=== PATIENT | male | born 1940 | race Caucasian/White ===

== ENCOUNTER → 2023-07-12 10:04 | Outpatient (REF) | payer OTHER, SELFPAY | LOC: WOUND 10:04 | PROVIDERS: ATTENDING PHYSICIAN Surgery; REFERRING PHYSICIAN Family Medicine | DX: L89.154 Pressure ulcer of sacral region, stage 4 (principal); E11.29 Type 2 diabetes mellitus with other diabetic kidney complication; N18.31 Chronic kidney disease, stage 3a; C67.9 Malignant neoplasm of bladder, unspecified; I25.10 Atherosclerotic heart disease of native coronary artery without angina pectoris; N40.1 Benign prostatic hyperplasia with lower urinary tract symptoms | CPT/HCPCS: 99212 ==

== ENCOUNTER 2023-07-16 23:37 | Inpatient (IN) | payer OTHER, SELFPAY ==
[2023-07-16] VITALS (14 sets, daily range): BP systolic 73–112; BP diastolic 45–57; PULSE 2–50; BMI 30.3
[2023-07-16 20:13] LABS: % Basophils 0.3 % (0-2); % Eosinophils 0.7 % (0-6); % Immature Granulocytes 0.6 % (0-0.5); % Lymphocytes 20.1 % (20.5-51.1); % Monocytes 6.4 % (1.7-9.3); % Neutrophils 71.9 % (42.2-75.2); Absolute Eosinophils 0.1 10^3/uL (0-0.7); Absolute Lymphocytes 1.4 10^3/uL (1.2-3.4); Absolute Monocytes 0.5 10^3/uL (0.1-0.6); Hematocrit 34.2 % (39.0-52.0); Hemoglobin 9.9 g/dL (13.0-18.0); Mean Corp Hgb Conc. 28.9 g/dL (33.0-37.0); Mean Corpuscular Volume 93.2 fL (80.0-94.0); Mean Platelet Volume 12.3 fL (7.4-10.4); Nucleated Red Blood Cells % 0 % (-); Platelet Count 119 10^3/uL (130-400); Red Blood Cell Count 3.67 10^6/uL (4.70-6.10); Red Cell Dist. Width 20.2 % (11.5-14.5)
--- NOTE | 2023-07-16 20:18 | ED.GENMED ---
History of Present Illness
General
Chief Complaint: Urinary Symptoms
Source: patient and ambulance crew
Exam Limitations: none
Time Seen by Provider: 07/16/23 20:01
Nursing documentation reviewed up to this point in time: agreed with
Travel History
Have you had any contact with someone who has COVID-19?: No
Do you have any symptoms of coronavirus? Fever > 100 degrees, chills, cough, shortness of breath, sore throat, loss of taste or smell, muscle aches, or headache?: No
Symptoms:: bradycardic, hypothermic
History of Present Illness
History of Present Illness:
83-year-old male with a past medical history of hypertension, hyperlipidemia, CAD, CHF, diabetes, chronic respiratory failure on 4 L of home oxygen who presents to the emergency department from the [facility] where he lives independently
with his but has daily visiting nurse; he presents via EMS for evaluation of generalized weakness and decreased urine output. Patient says this has been an ongoing issue for the past few days. He says he feels profoundly fatigued. He says
that he noticed that he is barely putting anything out from his Hodge catheter. He says that he cannot recall the last time he emptied--there are only about 100 mLs of urine in the bag. He says that he has not noticed any pain including chest
pain, abdominal pain, back pain or flank pain. He says that he has chronic dyspnea no worse than usual. No significant cough. He has a chronic wound which she says that the nurse regularly checks; he says that he was told it was improving. He
denies any other complaints today.
Past History
Past History
ED Past Medical History: CAD, CHF, HTN, Hypercholesterolemia, NIDDM, [place] (1995), Other (Reactive airway disease, wheezing with URI. Arthritis, gout, iron deficiency anemia) and Other (Coronary artery disease status post stent, diabetes)
ED Past Surgical History: Cardiac (PTCA, stent x1 1995) and Orthopedic (Rotator cuff repair)
Social History
Tobacco: Non-smoker
Alcohol: None
Drug: None
Personal:
Living: assisted living
Employment: Retired
Family History
Family History: CAD
Review of Systems
Review of Systems
All Other Systems: ROS reviewed and negative except as documented in HPI and ROS
Constitutional: Reports fatigue; Denies fever or chills
EENT: Denies sore throat
Respiratory: Reports trouble breathing (Chronic, unchanged); Denies cough
Cardiac: Denies chest pain or palpitations
ABD/GI: Denies abdominal pain, nausea, vomiting or diarrhea
: Reports other (Decreased urine output); Denies flank pain
Musculoskeletal: Denies neck pain or back pain
Skin: Reports other (Sacral wound)
Neurological: Denies dizzy
Phy Exam
Physical Exam
Physical Exam:
General: Awake, alert, oriented x3; appears chronically ill
Head: Normocephalic, atraumatic
Eyes: Conjunctiva normal, pupils 4 mm equal round and reactive to light bilaterally
Throat: Airway intact, handling secretions
Neck: Trachea midline, supple without meningismus, no JVD
Lungs: Somewhat diminished lung bases bilaterally but no focal wheezing or rales appreciated, no tachypnea, acceptable pulse ox on his normal 4 L of oxygen
Heart: Bradycardia with regular rhythm, no murmurs, gallops, or rubs appreciated
Abd: Soft, non distended, nontender
: Hodge catheter in place, scant amount of essentially straw-colored urine without significant sediment in the bag
Neuro: Cranial nerves grossly intact, speech fluid, generally weak but no focal weakness
Skin: Patient has unstageable sacral wound approximately 8 cm diameter with some rim of erythema and foul smell and purulence
Extremities: Edema bilateral lower extremities; extremities are cool to the touch
Scores
Heart Failure Risk
Heart Failure Risk Score: Not Applicable
Heart Score for Chest Pain Patients
STEMI patient?: Not applicable
Withdrawal Assessment of Alcohol
Withdrawal Assessment Completed?: Not applicable
Course
Orders/Labs/Results
Orders:
Orders
07/16/23 19:47
Electrocardiogram (*1) Urgent
Reason for Study: Bradycardia / Tachycardia
07/16/23 19:48
EKG- Treatment ONCE
07/16/23 20:03
Bladder Scan- Treatment ONCE
07/16/23 20:05
Complete Blood Count/With Diff Urgent
Comprehensive Metabolic Panel Urgent
Free T4 Urgent
Lactic Acid Urgent
TSH Reflex To Free T4 Urgent
Troponin I Urgent
Blood Culture Q30M
ROSA Source: Blood/Venous
Specimen Description:
07/16/23 20:17
Warming [Thermal Regulation-Treatment] ONCE
Mode:: Automatic
Type of thermoregulation:: Heating
PATIENT'S Goal Temperature:: 96.8 F (36 C)
Comments/Additional Instructions:: Temperature and skin assessment per unit protocol
0.9% Sodium Chloride 250 ml [Nss] 250 ml IV BOLUS
Piperacillin/Tazo 3.375 Gram [Zosyn] 3.375 gram in 50 ml IV NOW
07/16/23 20:18
CR Chest Portable - 1 View Urgent
Comment:
Reason For Exam: weak--eval for pna
Reason Study Needs to be Portable: Unable to Transport
07/16/23 20:28
Blood Culture Q30M
ROSA Source: Blood/Venous
Specimen Description:
07/16/23 21:25
Vancomycin [Vancocin] 2,000 mg 0.9% Sodium Chloride 500 ml [Nss] 500 ml IV NOW
07/16/23 21:39
Hydrocortisone Sod Succinate [Solu-Cortef] 100 mg IV NOW STA
07/16/23 21:47
0.9% Sodium Chloride 250 ml [Nss] 250 ml IV BOLUS
07/16/23 21:58
Venous Blood Gas Urgent
%Oxygen/Room Air: 94
07/16/23 22:43
Bipap [RESP] Urgent
Patient to use own unit?: No
Inspiratory Pressure (cm H2O): 12
Expiratory Pressure (cm H2O): 5
07/16/23 22:50
NORepinephrine INF (STD CONC) NOW X 1 BAG NORepinephrine 4 MG/250 ML [Levophed] 4 mg in 250 ml IV NOW
Initial dose in mcg/min, then titrate:: 2
Titrate to keep:: MAP > 65 mmHg
Titrate by mcg/min:: 1-2 mcg/min
Frequency of titrations (minutes):: 5
Maximum dose in ICU in mcg/min:: 30
Maximum dose in IMU in mcg/min:: 8
Maximum dose in IVU in mcg/min:: 4
Begin to taper infusion when:: Remained at goal for 4hrs
Taper by mcg/min:: 1-2 mcg/min
Frequency of taper (minutes) if patient maintains goal:: 30
Taper to off?: Yes
If infusion off & no longer maintaining goal:: Contact Provider
NSS 500mL Bolus over 1 hr 0.9% Sodium Chloride 500 ml [Nss] 500 ml IV BOLUS
Abnormal Lab Results
07/16/23 07/16/23
20:05 21:58
RBC 3.67 L 10^6/uL
(4.70-6.10)
Hgb 9.9 L g/dL
(13.0-18.0)
Hct 34.2 L %
(39.0-52.0)
MCHC 28.9 L g/dL
(33.0-37.0)
RDW 20.2 H %
(11.5-14.5)
Plt Count 119 L 10^3/uL
(130-400)
MPV 12.3 H fL
(7.4-10.4)
Immature Gran % 0.6 H %
(0-0.5)
Lymphocytes % 20.1 L %
(20.5-51.1)
VBG pH 7.21 L
(7.32-7.43)
VBG pCO2 76 H* mmHg
(35-48)
VBG pO2 139 H mmHg
(30-50)
VBG HCO3 30.4 H mmol/L
(22-27)
BUN 99 H mg/dl
(9-20)
Creatinine 1.8 H mg/dL
(0.7-1.3)
Glucose 143 H mg/dl
(70-99)
AST 16 L U/L
(17-59)
Alkaline Phosphatase 151 H U/L
(38-126)
Total Protein 6.2 L g/dl
(6.3-8.2)
Albumin 3.3 L g/dl
(3.5-5.0)
TSH (Reflex) 15.90 H uIU/ml
(0.47-4.68)
07/16/23 20:05
07/16/23 20:05
Vital Signs
Initial and Last Documented VS:
Initial Vital Signs
Temp Pulse Resp BP Pulse Ox
33.1 C L 43 20 106/56 92
07/16/23 19:43 07/16/23 19:43 07/16/23 19:43 07/16/23 19:43 07/16/23 19:43
Last Documented Vital Signs
Temp Pulse Resp BP Pulse Ox
33.3 C L 42 26 81/56 96
07/16/23 21:16 07/16/23 22:45 07/16/23 22:45 07/16/23 22:30 07/16/23 22:45
MDM/Problems Addressed
Differential Diagnosis Includes:
Infection including UTI, pneumonia, viral syndrome; myxedema coma/hypothyroidism; renal failure/uremia; anemia
MDM/Problems Addressed:
83-year-old male presents to the emergency room for worsening fatigue and decreased urine output. He arrives to us bradycardic, significantly hypothermic; soft blood pressure 93/50. Physical exam as above. Plan to place an IV check labs including
a CBC and a CMP, thyroid studies. Check EKG and troponin. Check lactate and blood cultures. Will send a urinalysis, chest x-ray. Bladder scan shows no retained urine. Will perform rewarming measures, provide some gentle fluids. Anticipate
admission pending initial assessment. Chief concern would be for infection particularly sacral wound infection and with his hypothermia, soft blood pressure will cover with broad-spectrum antibiotics upfront.
Initial labs reviewed: CBC shows stable anemia to 9.9, marginal thrombocytopenia to 119. CMP shows a creatinine of 1.8 only slightly increased at baseline. Troponin negative. TSH was significantly with a 15.9 but free T4 was normal. Hold off on
Synthroid with normal T4; I did add IV steroid for any element of adrenal insufficiency that may be present. Clinical reassessment patient remains hypothermic and bradycardic although we are continue to rewarm. He does have somewhat softer blood
pressure 82/47 which could be related to rewarming efforts. He has been covered with broad-spectrum antibiotics. We are continuing fluid resuscitation. He is somewhat lethargic but easily arousable�has prior history of hypercapnia added a VBG.
Chest x-ray concerning for bilateral lower lobe pneumonia. VBG returned with respiratory acidosis pH 7.21 with a pCO2 of 76. Patient is still slightly drowsy but arousable. Will place on BiPAP. His blood pressure remains soft despite IV
fluids�will start on low-dose Levophed peripherally while we continue fluid resuscitation. At this point will admit to the hospitalist�suspect sepsis secondary to pneumonia versus sacral wound infection. Case discussed with hospitalist for
admission to the ICU.
Chronic conditions affecting care:
CHF complicates fluid resuscitation
*Radiology
Radiology exam reviewed: preliminary read by ED provider and radiology read reviewed
*Pulse Oximetry
Patient hypoxic: no (Saturating acceptably on normal 4 L)
*EKG
Interpreted by ED Provider?: Yes
Heart Rate: 44
Rate: bradycardiac (Junctional bradycardia)
Rhythm: junctional
[place]: normal axis
Interval: normal interval
QRS Pattern: normal QRS
Ischemia: no ischemia
*Critical Care Note
Total Time (30-74mins, 75-104mins- exclusive of procedures): 33
comment:
Critical care statement: A total of 33 minutes of critical care time was provided for this patient. This includes management of unstable vital signs, evaluation of the patient at bedside, frequent reassessment, discussion with
consultants/hospitalist, and review of pertinent medical records. This time was separate from time utilized to perform any aforementioned documented procedures
Data Reviewed
Review of Other/Old Records Reveals: Labs and Records
Source: patient, records and ambulance crew
Patient Management
Discussion with other providers: Hospitalist (Discussed with hospitalist)
Escalation/DeEscalation of care consider admission/obs:
Admission indicated
ED Attending Note
-
Portions of this chart may have been created with voice recognition software.� Occasional wrong word or��sound alike� substitutions may have occurred due to the inherent limitations of voice recognition software.
Discharge Plan
Departure
Patient Disposition: Admit
Date of Disposition: 07/16/23
Time of Disposition: 22:53
Admit to doctor: Dulce
Presentation/result/management discussed w/ accepting MD/DO: Hospitalist
Discharge Problem:
Pneumonia, Hypercapnia, Hypothermia, Septic shock
Prescriptions:
No Action
simvastatin 20 MG tablet
20 mg PO HS
azelastine 137 mcg (0.1 %) aerosol,spray
1 spray INTRANASAL DAILY
cholecalciferol (vitamin D3) [Vitamin D3] 25 mcg (1,000 unit) Tablet
25 mcg PO DAILY
fluticasone propionate 50 mcg/actuation Quimby,Suspension
1 spray INTRANASAL DAILY
acetaminophen 325 MG tablet
650 mg PO Q4HPRN PRN (Reason: mild pain/fever>100.4)
bisacodyl [Dulcolax (bisacodyl)] 10 mg Suppository
10 mg NC DAILYPRN PRN (Reason: if MOM ineffective)
insulin aspart U-100 [Novolog FlexPen U-100 Insulin] 100 unit/mL (3 mL) Insulin Pen
0 unit SC AC
Patient Comments:
0-150=0 units, 151-200=1 unit, 201-250=2 units, 251-300=3 units, 301-400=4 units, 401-500=5 units, over 500=5 units and call MD.
magnesium hydroxide [Milk of Magnesia] 400 mg/5 mL Suspension
2,400 mg PO [id number] PRN (Reason: if no BM for 9 shifts)
ProSource 10-100 gram-kcal/30 mL Liquid
1 ea PO BID
Rx Instructions:
05/20/2023, 2 tablespoons (30 ml) BID.
aspirin 81 mg tablet,delayed release (DR/EC)
81 mg PO DAILY
furosemide [Lasix] 40 mg Tablet
40 mg PO DAILYPRN PRN (Reason: edema )
promethazine-DM 6.25-15 mg/5 mL Syrup
5 ml PO Q6HPRN PRN (Reason: cough )
miconazole nitrate [Micro-Guard] 2 % Powder
1 applic TOPICAL BID
Dakin's Solution 0.125 % Solution
1 applic TOPICAL DAILYPRN PRN (Reason: left ischium/soilage)
Dakin's Solution 0.125 % Solution
1 applic TOPICAL BID
tamsulosin 0.4 mg capsule
0.4 mg PO QPM
hydralazine 25 mg Tablet
25 mg PO TID Qty: 90 0RF
Aquaphor Ointment
1 applic TOPICAL HS
ibuprofen 400 mg Tablet
400 mg PO BIDPRN PRN (Reason: mild pain)
Yllgp-Pv-Khe Enema 19-7 gram/118 mL Enema
118 ml NC DAILYPRN PRN (Reason: if no bm aftr dulcolax on 4th day)
sodium chloride 0.65 % Aerosol,Quimby
1 spray INTRANASAL DAILYPRN PRN (Reason: congestion) Qty: 0
cyanocobalamin (vitamin B-12) 500 mcg Tablet
2,000 mcg PO DAILY
polyethylene glycol 3350 17 gram powder in packet
17 g PO DAILY PRN (Reason: Constipation)
latanoprost 0.005 % Drops
1 drp RIGHT EYE HS
sennosides [senna] 8.6 mg Tablet
8.6 mg PO BIDPRN PRN (Reason: constipation)
guaifenesin 100 mg/5 mL Liquid
200 mg PO Q4HPRN PRN (Reason: cough)
nitrofurantoin macrocrystal 100 mg Capsule
100 mg PO DAILY
Patient Comments:
start 06/08/23
phenylephrine HCl [Nasal Decongestant (PE)] 10 mg Tablet
10 mg PO Q6HPRN PRN (Reason: congestion)
Fitz-Synephrine (phenylephrine) 1 % Quimby,Non-Aerosol
1 spray INTRANASAL Q6HPRN PRN (Reason: congestion)
Dakin's Solution 0.125 % Solution
1 applic TOPICAL DAILYPRN PRN (Reason: soilage)
Aquaphor Ointment
1 applic TOPICAL DAILY
Referrals:
Parker Joe MD [Family Provider] -
Interventions
Interventions:
*Risk Screen - Suicide Last Done: 07/16/23 19:54
*General Assessment Last Done: 07/16/23 19:54
ED- Fall Risk Assessment Last Done: 07/16/23 20:06
*ED COVID-19 Vaccine History Last Done: 07/16/23 19:54
ED-Male Genitourinary Assessment Last Done: 07/16/23 20:06
[2023-07-16 20:27] LABS: Lactic Acid 1.2 mmol/L (0.7-2.0)
[2023-07-16 20:28] LABS: ALT (SGPT) 14 U/L (0-50); AST (SGOT) 16 U/L (17-59); Albumin 3.3 g/dl (3.5-5.0); Alkaline Phosphatase 151 U/L (38-126); Blood Urea Nitrogen 99 mg/dl (9-20); Calcium 8.4 mg/dl (8.4-10.2); Carbon Dioxide 28 mmol/L (22-30); Chloride 105 mmol/L (98-107); Estimated Creatinine Clearance 39 ml/min; Glucose 143 mg/dl (70-99); Hypochromasia 1+; Normal RBC Morphology No; Potassium 4.9 mmol/L (3.5-5.1); Sodium 137 mmol/L (135-145); Total Bilirubin 0.4 mg/dl (0.2-1.3); Total Protein 6.2 g/dl (6.3-8.2); eGFR 37.35
[2023-07-16] MEDS: NSS 250 IV ×2 (20:29→22:03)
[2023-07-16] MEDS: ZOSYN 50 IV (20:30)
[2023-07-16 20:39] LABS: Troponin I < 0.012 ng/ml
[2023-07-16 21:35] LABS: Free T4 1.07 ng/dl (0.78-2.19)
[2023-07-16] MEDS: VANCOCIN 540 MG IV (22:00)
[2023-07-16 22:04] LABS: Venous Blood Gas B.E. 1.5 mmol/L (-4 to +4); Venous Blood Gas HCO3 30.4 mmol/L (22-27); Venous Blood Gas O2 Sat % 98.9 %; Venous Blood Gas pH 7.21 (7.32-7.43); Venous Blood Gas pO2 139 mmHg (30-50)
[2023-07-16 22:06] LABS: Venous Blood Gas pCO2 76 mmHg (35-48)
[2023-07-16] MEDS: SOLU-CORTEF 100 MG IV (22:09)
[2023-07-16] MEDS: NSS 500 IV (23:18)
[2023-07-16] MEDS: LEVOPHED 250 IV (23:21)
--- NOTE | 2023-07-16 23:37 | HPS.HSE ---
Family Physician
-
Family Physician: Parker Joe
Chief Complaint
-
shortness of breath
History of Present Illness
83-year-old male past medical history of CAD status post stent, chronic HFpEF, hypertension, hyperlipidemia, diabetes, chronic Hodge catheter with history of catheter associated UTI, CKD3, stage IV sacral wound, anemia of chronic disease, cervical
dystonia/amatory dysfunction, morbid obesity, stercoral colitis, presenting from [facility] for generalized weakness and decreased urine output for past few days. He did not recall the last time he emptied urine from Hodge catheter bag. He
denies any chest pain, abdominal pain, back pain or flank pain. He denies any shortness of breath is worse than usual. No cough. He has chronic wound which nurse checks regularly and was told it was improving.
As per daughter patient was in his normal state of health until today. Daughter states that patient was only bradycardic when he was admitted here previously for sepsis. No new cardiac medications recently.
Patient was admitted 1 month ago for septic shock secondary to stercoral colitis versus right lower lobe pneumonia treated with IV antibiotic as well as hypercapnic respiratory failure treated with BiPAP.
Patient does not smoke or drink alcohol.
Medical History
Past Medical History
Past Medical History: Reports Other ( CAD status post stent, chronic HFpEF, hypertension, hyperlipidemia, diabetes, chronic Hodge catheter with history of catheter associated UTI, CKD3, stage IV sacral wound, anemia of chronic disease, cervical
dystonia/amatory dysfunction, morbid obesity, stercoral colitis)
Past Surgical History: Reports None
Social History
Tobacco: Non-smoker
Alcohol: None
Drug: None
Family History
Family History: Not pertinent
Allergies / Home Medications
Allergies reflects when Allergies were last updated in [employer].
Home Medications with original date entered in [employer]
Allergy/Medication List:
Allergies
Allergy/AdvReac Type Severity Reaction Status Date / Time
erythromycin base Allergy 'a long Verified 06/14/23 15:00
time ago-
can't
remember'
Opioids - Morphine Analogues Allergy Unknown Verified 06/14/23 15:00
tetracycline Allergy Unknown Verified 06/14/23 15:00
clonazepam AdvReac constipatio Verified 06/14/23 15:00
n
meperidine AdvReac agitated Verified 06/14/23 15:00
shellfish derived AdvReac Swelling/hx Verified 06/14/23 15:00
gout
Home Medications
simvastatin 20 mg tablet 20 mg PO HS High cholesterol 06/30/12
acetaminophen 325 mg tablet 650 mg PO Q4HPRN PRN mild pain/fever>100.4 07/02/22
azelastine 137 mcg (0.1 %) nasal spray aerosol 1 spray intranasal DAILY Allergies 07/02/22
cholecalciferol (vitamin D3) 25 mcg (1,000 unit) tablet (Vitamin D3) 25 mcg PO DAILY Supplement 07/02/22
fluticasone propionate 50 mcg/actuation nasal spray,suspension 1 spray intranasal DAILY Congestion 07/02/22
bisacodyl 10 mg rectal suppository (Dulcolax (bisacodyl)) 10 mg NM DAILYPRN PRN if MOM ineffective 11/08/22
insulin aspart U-100 100 unit/mL (3 mL) subcutaneous pen (Novolog FlexPen U-100 Insulin aspart) 0 unit SC AC Diabetes 11/08/22
amino ac-protein hydro-whey protein 10 gram-100 kcal/30 mL oral liquid (ProSource) 1 ea PO BID nutrition 12/22/22
aspirin 81 mg tablet,delayed release 81 mg PO DAILY Blood Clot Prevention/Tx 12/22/22
magnesium hydroxide 400 mg/5 mL oral suspension (Milk of Magnesia) 2,400 mg PO [id number] PRN if no BM for 9 shifts 12/22/22
furosemide 40 mg tablet (Lasix) 40 mg PO DAILYPRN PRN edema 04/02/23
miconazole nitrate 2 % topical powder (Micro-Guard) 1 applic topical BID B/L groin rash 04/02/23
promethazine-DM 6.25 mg-15 mg/5 mL oral syrup 5 ml PO Q6HPRN PRN cough 04/02/23
sodium hypochlorite 0.125 % solution (Dakin's Solution) 1 applic topical BID apply to sacral wound 04/02/23
sodium hypochlorite 0.125 % solution (Dakin's Solution) 1 applic topical DAILYPRN PRN left ischium/soilage 04/02/23
tamsulosin 0.4 mg capsule 0.4 mg PO QPM Urinary Issue 04/02/23
hydralazine 25 mg tablet 25 mg PO TID #90 tabs 04/07/23
cyanocobalamin (vitamin B-12) 500 mcg tablet 2,000 mcg PO DAILY Supplement 05/20/23
ibuprofen 400 mg tablet 400 mg PO BIDPRN PRN mild pain 05/20/23
mineral oil-hydrophil petrolat topical ointment (Aquaphor topical ointment) 1 applic topical HS B/L lower legs and feet 05/20/23
polyethylene glycol 3350 17 gram oral powder packet 17 g PO DAILY PRN Constipation 05/20/23
sodium chloride 0.65 % nasal spray aerosol 1 spray intranasal DAILYPRN PRN congestion ##0 05/20/23
sodium phosphates 19 gram-7 gram/118 mL enema (Pigbx-Go-Bhx Enema) 118 ml NM DAILYPRN PRN if no bm aftr dulcolax on 4th day 05/20/23
guaifenesin 100 mg/5 mL oral liquid 200 mg PO Q4HPRN PRN cough 06/02/23
latanoprost 0.005 % eye drops 1 drp RIGHT EYE HS Eye Condition 06/02/23
nitrofurantoin macrocrystal 100 mg capsule 100 mg PO DAILY Infection 06/02/23
phenylephrine HCl 10 mg tablet (Nasal Decongestant (phenylephrine)) 10 mg PO Q6HPRN PRN congestion 06/02/23
sennosides 8.6 mg tablet (senna) 8.6 mg PO BIDPRN PRN constipation 06/02/23
phenylephrine HCl 1 % nasal spray (Fitz-Synephrine (phenylephrine)) 1 spray intranasal Q6HPRN PRN congestion 06/14/23
sodium hypochlorite 0.125 % solution (Dakin's Solution) 1 applic topical DAILYPRN PRN soilage 06/14/23
mineral oil-hydrophil petrolat topical ointment (Aquaphor topical ointment) 1 applic topical DAILY sacral woud 07/16/23
Review of Systems
-
History Source: Patient
A 12 point ROS was completed and negative except as noted: Yes
Constitutional: Reports No Symptoms
EENT: Reports No Symptoms
Respiratory: Reports No Symptoms
Cardiac: Reports No Symptoms
Abdomen/GI: Reports No Symptoms
: Reports No Symptoms
Musculoskeletal: Reports No Symptoms
Skin: Reports No Symptoms
Neurological: Reports No Symptoms
Endocrine: Reports No Symptoms
Hematologic/Lymphatic: Reports No Symptoms
Psych: Reports No Symptoms
Physical Exam
Vital Signs
Vital Signs
Temp Pulse Resp BP Pulse Ox
91.9 F L 42 26 81/56 96
07/16/23 21:16 07/16/23 22:45 07/16/23 22:45 07/16/23 22:30 07/16/23 22:45
Physical Exam
General: Well Developed, Well Nourished and No Apparent Distress
HEENT: NormoCephalic, Moist mucous membranes and Atraumatic
Respiratory: Clear
Cardiac: S1/S2 and Regular Rhythm; No Murmur or Rub
GI: Soft, Non Tender, Non Distended and Normal Bowel Sounds; No Organomegaly
Rectal: Deferred by Provider
Musculoskeletal: No Clubbing, No Cyanosis and No Edema
Skin: No Rash
Neuro: Nonfocal/grossly intact
Laboratory Results
-
07/16/23 20:05
07/16/23 20:05
Laboratory Results
Lactic Acid 1.2 mmol/L (0.7-2.0) 07/16/23 20:05
Total Bilirubin 0.4 mg/dl (0.2-1.3) 07/16/23 20:05
AST 16 U/L (17-59) L 07/16/23 20:05
ALT 14 U/L (0-50) 07/16/23 20:05
Alkaline Phosphatase 151 U/L (38-126) H 07/16/23 20:05
Troponin I < 0.012 ng/ml 07/16/23 20:05
Data Reviewed
-
Lab Data: Labs Reviewed by me
Old Records: Reviewed
Impression/Plan
-
IMPRESSION:
PLAN:
# Septic shock (hypothermia, tachypnea, hypotension) secondary to bibasilar pneumonia with small to moderate right pleural effusion/infected sacral wound
-Patient awake and alert on BiPAP
-Examination of sacral wound shows unstageable sacral wound 8 cm with some rim of erythema and foul smell and purulence
-Check blood cultures, sputum culture, wound culture
-Check urinalysis
-Check COVID and influenza
-Replace Hodge catheter
-Patient received 1 L of IV fluids, hold further fluids given hypercapnic respiratory failure/pleural effusion
-Vancomycin/Zosyn
-Levophed
-Bear hugger
# Severe hypothermia
# Junctional bradycardia secondary to hypothermia
-EKG shows junctional bradycardia heart rate of 44
-TSH 15.9, free T4 1.07
-Check a.m. cortisol
-Started stress dose steroids 50 mg IV every 8 hydrocortisone
# Hypercapnic respiratory failure
# Small to moderate right pleural effusion/small left pleural effusion
-VBG shows pCO2 of 76
-BiPAP started
Coronary artery disease status post stent
-Continue aspirin
-Continue statin
Chronic HFpEF on 3L
-Hold Lasix
Essential hypertension
-Hold hydralazine
Hyperlipidemia
Type 2 diabetes
-Insulin sliding scale
Chronic Hodge catheter
-Continue tamsulosin
CKD stage III
-Renal function at baseline
History of stage IV sacral wound
Anemia of chronic disease
Cervical dystonia/amatory dysfunction
Morbid obesity
History of constipation/stercoral colitis
-Continue bowel regimen
Do not Intubate
DVT prophylaxis�heparin
N.p.o.
[2023-07-17] VITALS (47 sets, daily range): BP systolic 96–159; BP diastolic 45–117; PULSE 2–56; BMI 30.3; BMI 29.7
[2023-07-17 00:09] LABS: COVID-19 Antigen Negative (Negative)
[2023-07-17 00:40] LABS: NT-proBNP 8440 pg/ml
--- NOTE | 2023-07-17 01:30 | PTCARENOTE ---
pt admit to ICU from ER, lethargic, oriented x 3, SB HR 50s, B/L IV WNL- levo gtt infusing at 4mcg/min. arrived on bipap 12/5 8L, Sat 88-90%, increased to 10L. CHG clothes, turned, skin care, sacral wound dressing changed w/wet to dry, rachele area
with reddened/MASD, chronic chatterjee removed, changed w/#22 coudet catheter, purulent drainage at penis, urine cloudy. POC discussed with pt, call mccall in reach.
[2023-07-17] MEDS: ZOSYN 50 IV ×4 (02:21→20:27)
[2023-07-17] MEDS: SOLU-CORTEF 50 MG IV ×2 (05:02→13:13)
[2023-07-17 05:27] LABS: % Basophils 0.1 % (0-2); % Eosinophils 0.1 % (0-6); % Immature Granulocytes 0.7 % (0-0.5); % Lymphocytes 21.6 % (20.5-51.1); % Monocytes 1.3 % (1.7-9.3); % Neutrophils 76.2 % (42.2-75.2); Absolute Immature Granulocytes 0.1 10^3/uL (0-0.05); Absolute Lymphocytes 2.2 10^3/uL (1.2-3.4); Absolute Monocytes 0.1 10^3/uL (0.1-0.6); Absolute Neutrophils 7.6 10^3/uL (1.4-6.5); Hemoglobin 9.2 g/dL (13.0-18.0); Mean Corp Hgb Conc. 29.7 g/dL (33.0-37.0); Mean Corpuscular Hgb 26.9 pg (27.0-31.0); Mean Corpuscular Volume 90.6 fL (80.0-94.0); Mean Platelet Volume 11.9 fL (7.4-10.4); Nucleated Red Blood Cells % 0 % (-); Platelet Count 119 10^3/uL (130-400); Red Blood Cell Count 3.42 10^6/uL (4.70-6.10)
--- NOTE | 2023-07-17 05:29 | PTCARENOTE ---
pt resting comfortably on bipap, no changes in assessment.
[2023-07-17 05:34] LABS: Glucose - Point of Care 129 mg/dl (70-99)
[2023-07-17 05:37] LABS: INR 1.16; PT 14.6 Sec (11.4-14.6)
[2023-07-17 05:38] LABS: APTT 39.9 Sec (23.4-35.0)
[2023-07-17 06:26] LABS: Cortisol, Random 59.2 ug/dl
[2023-07-17 07:10] LABS: ALT (SGPT) 13 U/L (0-50); AST (SGOT) 17 U/L (17-59); Alkaline Phosphatase 138 U/L (38-126); Blood Urea Nitrogen 101 mg/dl (9-20); Carbon Dioxide 27 mmol/L (22-30); Chloride 107 mmol/L (98-107); Estimated Creatinine Clearance 39 ml/min; Glucose 120 mg/dl (70-99); Potassium 5.1 mmol/L (3.5-5.1); Sodium 139 mmol/L (135-145); Total Bilirubin 0.4 mg/dl (0.2-1.3); Total Protein 5.8 g/dl (6.3-8.2); eGFR 43.02
--- NOTE | 2023-07-17 08:00 | PTCARENOTE ---
Assumed care of patient. Pt rec'd on bipap 12/5 w/ 10L. Lethargic but easily arousable. Moves upper extremities. S1 S2 reg w/ NSR/1st degree AVB/BBC on monitor. DP/PT confirmed w/ doppler. +2 LLE. Heels elevated on pillows. Lungs diminished
w/ fine crackles throughout posteriorly...diminished. Abdomen obese....+BS. Incontinent of small brown smear. Hodge draining cloudy yellow urine w/ sediment. Hodge care done. Periarea w/ MASD...miconazole powder applied. Skin pale in color.
Stage 4 sacral wound...dressing changed. VS documented. Will continue to monitor.
--- NOTE | 2023-07-17 08:31 | CON.INTV ---
Consultation
Consultation Request
Date/Time Consultation Requested: 07-17-23
Date/Time Consultation Performed: 07-17-23
Requesting Provider: Hospitalist
Performing Provider: Dr Richards
Reason for Consultation: weakness
Medical History
-
Chief Complaint: weakness
History of Present Illness:
Mr Miah Kelly is an 83/M adm 07-16 from assisted living with few d h/o weakness and decreased UO through Hodge catheter.
Denied CP, abd pain, n/v. Reported no change in chronic dyspnea (chronic resp failure on home O2 at 4L).
At ER, bradycardic at 43, hypothermic 91.6F, BP 93/50, bladder scan with no retained urine. Started on warming blanket, IVFs, low dose NE, CXR suspicious for basilar infiltrates
Seen at ICU, required only 2 hrs of low dose NE, kept on BPAP overnight, this am transitioned to O2 NC 10L, POx 100%. Deconditioned, poor historian
Past Medical History
Past Medical History: Other (see A&P for PMH/PSH)
Social History
Tobacco: Non-smoker
Alcohol: None
Drug: None
Personal:
Living: Assisted Living
Employment: Retired
Family History
Family History: CAD
Allergies / Home Medications
Allergies
Allergy/AdvReac Type Severity Reaction Status Date / Time
erythromycin base Allergy 'a long Verified 06/14/23 15:00
time ago-
can't
remember'
Opioids - Morphine Analogues Allergy Unknown Verified 06/14/23 15:00
tetracycline Allergy Unknown Verified 06/14/23 15:00
clonazepam AdvReac constipatio Verified 06/14/23 15:00
n
meperidine AdvReac agitated Verified 06/14/23 15:00
shellfish derived AdvReac Swelling/hx Verified 06/14/23 15:00
gout
Home Medications
Medication Instructions Recorded Confirmed Last Taken Type
simvastatin 20 mg tablet 20 mg PO HS High cholesterol 06/30/12 07/16/23 05/12/20 History
acetaminophen 325 mg tablet 650 mg PO Q4HPRN PRN mild 07/02/22 07/16/23 Unknown History
pain/fever>100.4
azelastine 137 mcg (0.1 %) nasal 1 spray intranasal DAILY Allergies 07/02/22 07/16/23 Unknown History
spray aerosol
cholecalciferol (vitamin D3) 25 25 mcg PO DAILY Supplement 07/02/22 07/16/23 Unknown History
mcg (1,000 unit) tablet (Vitamin
D3)
fluticasone propionate 50 1 spray intranasal DAILY Congestion 07/02/22 07/16/23 Unknown History
mcg/actuation nasal
spray,suspension
bisacodyl 10 mg rectal suppository 10 mg VA DAILYPRN PRN if MOM 11/08/22 07/16/23 Unknown History
(Dulcolax (bisacodyl)) ineffective
insulin aspart U-100 100 unit/mL 0 unit SC AC Diabetes 11/08/22 07/16/23 Unknown History
(3 mL) subcutaneous pen (Novolog
FlexPen U-100 Insulin aspart)
amino ac-protein hydro-whey 1 ea PO BID nutrition 12/22/22 07/16/23 Unknown History
protein 10 gram-100 kcal/30 mL
oral liquid (ProSource)
aspirin 81 mg tablet,delayed 81 mg PO DAILY Blood Clot 12/22/22 07/16/23 Unknown History
release Prevention/Tx
magnesium hydroxide 400 mg/5 mL 2,400 mg PO [id number] PRN if no BM 12/22/22 07/16/23 Unknown History
oral suspension (Milk of Magnesia) for 9 shifts
furosemide 40 mg tablet (Lasix) 40 mg PO DAILYPRN PRN edema 04/02/23 07/16/23 Unknown History
miconazole nitrate 2 % topical 1 applic topical BID B/L groin rash 04/02/23 07/16/23 Unknown History
powder (Micro-Guard)
promethazine-DM 6.25 mg-15 mg/5 mL 5 ml PO Q6HPRN PRN cough 04/02/23 07/16/23 Unknown History
oral syrup
sodium hypochlorite 0.125 % 1 applic topical BID apply to 04/02/23 07/16/23 Unknown History
solution (Dakin's Solution) sacral wound
sodium hypochlorite 0.125 % 1 applic topical DAILYPRN PRN left 04/02/23 07/16/23 Unknown History
solution (Dakin's Solution) ischium/soilage
tamsulosin 0.4 mg capsule 0.4 mg PO QPM Urinary Issue 04/02/23 07/16/23 Unknown History
hydralazine 25 mg tablet 25 mg PO TID #90 tabs 04/07/23 07/16/23 Unknown Rx
cyanocobalamin (vitamin B-12) 500 2,000 mcg PO DAILY Supplement 05/20/23 07/16/23 Unknown History
mcg tablet
ibuprofen 400 mg tablet 400 mg PO BIDPRN PRN mild pain 05/20/23 07/16/23 Unknown History
mineral oil-hydrophil petrolat 1 applic topical HS B/L lower legs 05/20/23 07/16/23 Unknown History
topical ointment (Aquaphor topical and feet
ointment)
polyethylene glycol 3350 17 gram 17 g PO DAILY PRN Constipation 05/20/23 07/16/23 Unknown History
oral powder packet
sodium chloride 0.65 % nasal spray 1 spray intranasal DAILYPRN PRN 05/20/23 07/16/23 Unknown History
aerosol congestion ##0
sodium phosphates 19 gram-7 118 ml VA DAILYPRN PRN if no bm 05/20/23 07/16/23 Unknown History
gram/118 mL enema (Vaaxa-Ss-Pqa aftr dulcolax on 4th day
Enema)
guaifenesin 100 mg/5 mL oral liquid 200 mg PO Q4HPRN PRN cough 06/02/23 07/16/23 Unknown History
latanoprost 0.005 % eye drops 1 drp RIGHT EYE HS Eye Condition 06/02/23 07/16/23 Unknown History
nitrofurantoin macrocrystal 100 mg 100 mg PO DAILY Infection 06/02/23 07/16/23 Unknown History
capsule
phenylephrine HCl 10 mg tablet 10 mg PO Q6HPRN PRN congestion 06/02/23 07/16/23 Unknown History
(Nasal Decongestant
(phenylephrine))
sennosides 8.6 mg tablet (senna) 8.6 mg PO BIDPRN PRN constipation 06/02/23 07/16/23 Unknown History
phenylephrine HCl 1 % nasal spray 1 spray intranasal Q6HPRN PRN 06/14/23 07/16/23 Unknown History
(Fitz-Synephrine (phenylephrine)) congestion
sodium hypochlorite 0.125 % 1 applic topical DAILYPRN PRN 06/14/23 07/16/23 Unknown History
solution (Dakin's Solution) soilage
mineral oil-hydrophil petrolat 1 applic topical DAILY sacral woud 07/16/23 07/16/23 Unknown History
topical ointment (Aquaphor topical
ointment)
Review of Systems
-
Unable to Obtain full review of systems at this time due to: Acuity
Vitals / Labs / Diagnostic Testing
Vital Signs
Temp Pulse Resp BP Pulse Ox
96.4 F L 64 18 135/59 95
07/17/23 07:26 07/17/23 05:15 07/17/23 05:15 07/17/23 05:00 07/17/23 05:28
Lab Data
07/17/23 05:16
07/17/23 06:36
Laboratory Results
07/17/23
05:16
PT 14.6
INR 1.16
APTT 39.9 H
Microbiology
02/02/24 23:44 Nasal Swab Influenza Types A & B (RIVER) - Final
Negative for Influenza A & B, NAAT
Negative results must be combined with clinical observations
and patient history.
Nucleic Acid Amplification test (NAAT)performed on the
[employer] platform.
Diagnostic Testing:
Physical Exam
-
HEENT: Normocephalic and Moist Mucous Membranes
Cardiovascular: Regular Rhythm, Murmur (n), Peripheral Edema, Calf Tenderness (n) and JVD
Respiratory: Rales (subtle) and Accessory Resp Muscle Use
GI: Soft, Non Distended and Non Tender
Neurology: Other (sleepy, arousable, deconditioned)
Skin: Dry
General: Respiratory Distress (n)
Assessment
-
Assessment:
Mr Miah Kelly is an 83/M adm 07-16 from assisted living with few d h/o weakness and decreased UO through Hodge catheter. Denied CP, abd pain, n/v. Reported no change in chronic dyspnea (chronic resp failure on home O2 at 4L). At ER, bradycardic
at 43, hypothermic 91.6F, BP 93/50, bladder scan with no retained urine. Started on warming blanket, IVFs, low dose NE, CXR suspicious for basilar infiltrates
Impression:
Bradycardia
Hypothermia
Suspected sepsis of unknown source
Hypercapnia likely related to hypothermia
Troponin negative
Elevated BNP
Elevated TSH with normal fT4
Normal random cortisol
COVID/influenza negative
Conditions MANAGER BAKERY:
Sepsis syndrome adm Jun 2023, unclear source, received short course of vanco/meropenem
CAD status post stent 1995
HFpEF
HTN
HLD
DM
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
CKD3
Stage IV sacral wound
Anemia of chronic disease
Cervical dystonia
Morbid obesity
Stercoral colitis
Non-smoker
Plan:
Adm to ICU for symptomatic bradycardia, hypothermia and suspected sepsis
Required only 2 hrs on low dose NE
CO2 retention documented already on ABGs from Jun 2023 and intermittently serum total CO2 has been elevated since 2019
Hypothermia event likely exacerbated CO2 retention seen in VBG this adm
Stayed on BPAP 10/5 10L overnight, transitioned to O2 10L, POx 100%, wean O2 as tolerated for POx>=94%
Continue BPAP as needed
Baseline O2 requirement 4L as outpatient
Some improvement in mentation considering reportedly poor baseline MS, denies pain and cough, appears chronically deconditioned
Blood cxs, U cx pending
Check MRSA screening
Doubt could produce sputum sample for cx at this juncture given borderline mentation
Vanco/zosyn since adm
Adm portable CXR of poor quality
Repeat CXR
Bradycardia improved with low dose 2 hr use of NE and warming blanket
HR at 60+, temp up to 96.3F
HC stress dose started on adm, can d/c, noted normal random cortisol level
Normal fT4
Sacral wound care
Severe deconditioning which is chronic and worsening overtime
Limited DNR, not for intubation
Stable for transfer to IMU or telemetry, will follow
Diagnostic tests:
CXR 07-16-23 c/w 06-16-23. Baseline film portable, rotated, low lung volumes, blurred diaphragms/effusions, RUE PICC. Current film of poor quality, low lung volumes, defib pad at R base, pulm vasc congestion
TTE 12-24-22
CONCLUSIONS
Technically difficult study.
LV ejection fraction is 70-75%, by visual assessment. Grossly normal wall motion.
Enlarged right ventricular size. Low normal right ventricular systolic function.
Mild tricuspid regurgitation. Estimated pulmonary artery pressure of 45-50 mmHg.
Compared to previous echo on 07/03/2022, the degree of tricuspid regurgitation appears to have improved (previously moderate) with a decrease in PASP (previously 83 mmHg).
[2023-07-17] MEDS: DAKIN'S SOLUTION 0.125% 1/4 STRENGTH 473 ML TOPICAL (08:48)
[2023-07-17] MEDS: DESENEX/MITRAZOL/ZEASORB 1 APPLIC TOPICAL ×2 (08:48→20:32)
[2023-07-17] MEDS: HEPARIN 5000 UNITS SC ×2 (08:48→20:27)
[2023-07-17] MEDS: HYDROPHOR 1 APPLIC TOPICAL ×2 (08:49→21:12)
--- NOTE | 2023-07-17 09:15 | PTCARENOTE ---
Removed from bipap by RPT. Placed on 10L N/C...sats 94%. Will monitor. Speech consulted.
[2023-07-17 09:36] LABS: Urine Albumin Trace (Neg - Trace); Urine Bilirubin Negative (Negative); Urine Character Very Cloudy (Clear); Urine Color Yellow; Urine Glucose Negative (Negative); Urine Ketone Negative (Negative); Urine Leukocyte 2+ (Negative); Urine Nitrite Negative (Negative); Urine Occult Blood 4+ (Negative); Urine Urobilinogen Negative (Neg - 1+)
[2023-07-17 09:49] LABS: Urine Bacteria Few (Negative)
[2023-07-17 11:03] LABS: Glycohemoglobin (HgbA1c) 5.6 % (4.0-5.6)
--- NOTE | 2023-07-17 12:00 | PTCARENOTE ---
CXR, MRSA, and vanco lab sent per orders. Pt currently on 8L N/C...sats 98%. O2 decreased to 6L N/C...sats 98%. No major changes in physical assessment. VS documented. Remains on yamil hugger. Will continue to monitor.
[2023-07-17 12:03] LABS: Glucose - Point of Care 103 mg/dl (70-99)
[2023-07-17 12:46] LABS: Vancomycin Random 15.8 ug/ml
--- NOTE | 2023-07-17 13:35 | PHA.VAN.IN ---
Assessment
- Assessment
Renal Function: Appears similar to baseline
Maximum Temperature: 97
Minimum Temperature: 91.6
Concomitant Antimicrobials: Piperacillin-tazobactam
Plan
- Plan
Initial / Loading Dose: Vanc 2000mg IV given 07/16 2124
Maintenance Regimen: PRN by level. R = 15.8 ~15hrs post 2gm. Will give Vanc 1gm x 1 dose today
Monitoring: Random level 2 AM
Pharmacokinetics Vancomycin I
- -
Patient Age: 83
Patient Sex: Male
Vancomycin Day #: 1
Indication: Pulmonary/Respiratory
Requesting Provider: Sandor
Pertinent Antimicrobial Allergies:
Tetracycline = unknown and erythromycin = unknown
Height / Weight:
Height 5 ft 11 in
Actual Weight 96.5 kg
IBW in k.3
Adjusted BW in k.8
Pertinent Past Medical History: CKD3
- Vital Signs / Lab Results
Temp Pulse Resp BP Pulse Ox
96.4 F L 64 24 96/58 96
07/17/23 13:00 07/17/23 12:12 07/17/23 12:12 07/17/23 12:12 07/17/23 13:00
Lab Results - Hematology
07/16/23 07/17/23
20:05 05:16
WBC 7.0 10.0
Lab Results - Chemistry
07/16/23 07/17/23 07/17/23
20:05 05:16 06:36
BUN 99 H Cancelled 101 H*
Creatinine 1.8 H Cancelled 1.6 H
Estimated Creat Clear 39 Cancelled 39
Albumin 3.3 L Cancelled 3.0 L
07/16/23
20:05
Lactic Acid 1.2
Lab Results - Urine
07/17/23
08:59
Urine Nitrite (Reflex) Negative
Leukocyte Esterase Rfl 2+ A
Urine WBC (Reflex) 11-15 A
Urine Bacteria (Reflex) Few A
Microbiology Results
07/16/23 23:44 Influenza Types A & B (RIVER) - Final
Nasal Swab Negative for Influenza A & B, NAAT
Negative results must be combined with clinical observations
and patient history.
Nucleic Acid Amplification test (NAAT)performed on the
[employer] platform.
--- NOTE | 2023-07-17 13:38 | W.PN.HOSP.TC ---
Today's Communication/Plan
-
see outlined plan
Assessment / Plan
Assessment / Plan
Assessment:
Acute hypoxic respiratory failure
- on BiPAP initially now 4L which is baseline
Septic shock (hypothermia, tachypnea, hypotension) secondary to bibasilar pneumonia with small to moderate right pleural effusion
- pressors weaned earlier
- continue sepsis protocol IVF
- titrate Jayne-Hugger to off
- continue Vanco/Zosyn; follow cultures
- follow imaging
- follow pulmonary recs
Junctional bradycardia secondary to hypothermia and sepsis
- TSH 15, FT4 normal
- monitor Tele
- DC stress dose steroids
infected sacral wound, unstageable vs stage IV
- continue empiric Abx
- wound care eval
- possible GS eval
Chronic Hodge on admit
- continue Flomax
- Hodge replaced in ER
Chronic hypercapnic respiratory failure
- improved with BiPAP
Small to moderate right pleural effusion/small left pleural effusion
Coronary artery disease status post stent
- continue aspirin
- continue statin
chronic HFpEF on 3L
- hold Lasix
Essential hypertension
- hold hydralazine
Hyperlipidemia - statin
Type 2 diabetes
- SSI
CKD stage 3b
Anemia of chronic disease
Cervical dystonia/amatory dysfunction
Morbid obesity
History of constipation/stercoral colitis
- continue bowel regimen
DVT ppx: SC Heparin
Code: DNI otherwise full measures
Anticipated Discharge: > 48 hours
Subjective/Interval History
-
Date of Service: July 17, 2023
no complaints
off Levo earlier
remains on Jayne-Hugger
Objective Data
-
Labs:
Laboratory Results
07/17/23 07/17/23
05:16 06:36
WBC 10.0
Hgb 9.2 L
Hct 31.0 L
Plt Count 119 L
PT 14.6
INR 1.16
APTT 39.9 H
Sodium Cancelled 139
Potassium Cancelled 5.1
Chloride Cancelled 107
Carbon Dioxide Cancelled 27
BUN Cancelled 101 H*
Creatinine Cancelled 1.6 H
Glucose Cancelled 120 H
Calcium Cancelled 8.0 L
Total Bilirubin Cancelled 0.4
AST Cancelled 17
ALT Cancelled 13
Alkaline Phosphatase Cancelled 138 H
Vital Signs:
Vital Signs
Temp Pulse Resp BP Pulse Ox
96.4 F L 64 24 96/58 96
07/17/23 13:00 07/17/23 12:12 07/17/23 12:12 07/17/23 12:12 07/17/23 13:00
I&O
07/16/23 07/17/23 07/18/23
06:59 06:59 06:59
Intake Total 87.5 / 87.5 0 / 0
Output Total 250 / 250
Balance -162.5 / -162.5 0 / 0
Physical Exam
-
General: No Apparent Distress
HEENT: Normocephalic and Atraumatic
Respiratory: Rales and Accessory Resp Muscle Use; Negative Wheezes
Cardiac: Regular Rhythm
GI: Soft
Genito-urinary: No Costovertebral Tender
Neuro: AO x 3
Hematologic / Lymphatic: No Lymphadenopathy
Psych: Calm
Data Reviewed
-
Total Time Spent with Patient (in minutes): 45
Labs: Labs Reviewed by me
[2023-07-17] MEDS: NSS 1000 IV (14:25)
--- NOTE | 2023-07-17 16:00 | PTCARENOTE ---
Seen by speech. Keep NPO for now...will re-evaluate tmr. On 4L N/C...sats 95%. Encouraged to cough and deep breath. NSS @ 60ml/hr. Incontinent of moderate amt of loose brown stool. Sacral wound dressing changed again. Tx to IMU when bed
available.
--- NOTE | 2023-07-17 16:40 | PTOTSP ---
Dysphagia Evaluation
Pt with current admission for septic shock 2/2 PNA, severe hypothermia, and RF. Recommend strict NPO 2/2 increased lethargy and altered mental status w/ little to no effort to swallow PO trials this date resulting in extraction of trials from oral
cavity. SENIOR RELATIONSHIP MANAGER service will continue to follow up and advance diet as able.
Of note - was last seen by tis service on 06/20/23 with recommendations for Dysphagia 3 Diet and cautious trial of thin liquids (CUP SIPS ONLY), meds in puree.
Recommend:
1. Strict NPO
2. Oral care 3-5x/day
3. SENIOR RELATIONSHIP MANAGER service to follow up at the acute care level and advance diet as able
[2023-07-17] MEDS: VANCOCIN 200 IV (17:35)
[2023-07-17 17:49] LABS: Glucose - Point of Care 104 mg/dl (70-99)
[2023-07-17] MEDS: DAKIN'S SOLUTION 0.125% 1/4 STRENGTH TOPICAL (20:32)
[2023-07-17] MEDS: LIPITOR PO (21:00)
[2023-07-17] MEDS: XALATAN OPHTHALMIC SOLUTION 1 DROP RIGHT EYE (21:13)
[2023-07-18] VITALS (18 sets, daily range): BP systolic 76–121; BP diastolic 36–76; PULSE 2; BMI 29.9
[2023-07-18 00:05] LABS: Glucose - Point of Care 104 mg/dl (70-99)
[2023-07-18] MEDS: ZOSYN 50 IV ×4 (02:42→20:41)
[2023-07-18 05:57] LABS: % Basophils 0.3 % (0-2); % Eosinophils 0.1 % (0-6); % Immature Granulocytes 0.6 % (0-0.5); % Monocytes 8.5 % (1.7-9.3); % Neutrophils 61.5 % (42.2-75.2); Absolute Lymphocytes 1.9 10^3/uL (1.2-3.4); Absolute Monocytes 0.6 10^3/uL (0.1-0.6); Absolute Neutrophils 4.1 10^3/uL (1.4-6.5); Hematocrit 27.8 % (39.0-52.0); Mean Corp Hgb Conc. 28.8 g/dL (33.0-37.0); Mean Corpuscular Hgb 26.3 pg (27.0-31.0); Mean Corpuscular Volume 91.4 fL (80.0-94.0); Mean Platelet Volume 11.5 fL (7.4-10.4); Nucleated Red Blood Cells % 0 % (-); Platelet Count 117 10^3/uL (130-400); Red Blood Cell Count 3.04 10^6/uL (4.70-6.10); Red Cell Dist. Width 20.2 % (11.5-14.5); White Blood Cell Count 6.7 10^3/uL (4.8-10.8)
[2023-07-18 06:14] LABS: Glucose - Point of Care 79 mg/dl (70-99)
[2023-07-18 06:23] LABS: Vancomycin Random 20.5 ug/ml
[2023-07-18 06:27] LABS: Blood Urea Nitrogen 104 mg/dl (9-20); Calcium 8.1 mg/dl (8.4-10.2); Carbon Dioxide 28 mmol/L (22-30); Chloride 108 mmol/L (98-107); Estimated Creatinine Clearance 36 ml/min; Glucose 76 mg/dl (70-99); Potassium 4.5 mmol/L (3.5-5.1); Sodium 143 mmol/L (135-145)
--- NOTE | 2023-07-18 08:00 | PTCARENOTE ---
Received pt from previous shift. Assessment performed, see flowsheets. Pt asleep in bed. Jayne mynorgger turned off as pt well above goal. SR on heart monitor, 97% on baseline 4L NC. Chronic chatterjee in place. R hand PIV with NS at 60mL/hr. L arm PIV in
place. Pt with IMU orders. Will continue to monitor.
[2023-07-18] MEDS: HEPARIN 5000 UNITS SC ×2 (08:42→20:42)
[2023-07-18] MEDS: DAKIN'S SOLUTION 0.125% 1/4 STRENGTH 473 ML TOPICAL ×2 (08:42→20:41)
[2023-07-18] MEDS: DESENEX/MITRAZOL/ZEASORB 1 APPLIC TOPICAL ×2 (08:42→20:41)
[2023-07-18] MEDS: HYDROPHOR 1 APPLIC TOPICAL ×2 (08:43→20:41)
--- NOTE | 2023-07-18 09:26 | PHA.VAN.FU ---
Vancomycin Assessment / Plan
- Assessment
Renal Function: Stable
WBC's are: Trending Down
In the past 24 hrs, patient has been: Hypothermic (Tmin = 95.8)
Concomitant Antimicrobials: Piperacillin-tazobactam
- Assessment - Therapeutic Drug Monitoring
Random Level: R = 20.5 ~ 13hrs post Vanc 1gm
- Dosing Plan
Continue: Dose by level
Dosing by Level: Hold off on dosing today
- Monitoring Plan
Random Level: R in AM
- Follow Up
Pharmacy will continue to follow.
Vancomycin Follow UP
- -
Patient Age: 83
Patient Sex: Male
Vancomycin Day #: 2
Indication: Pulmonary/Respiratory
Requesting Provider: Sandor
Pertinent Antimicrobial Allergies:
Tetracycline = unknown and erythromycin = unknown
Height / Weight:
Height 5 ft 11 in
Actual Weight 97.2 kg
IBW in k.3
Adjusted BW in k.8
Pertinent Past Medical History: CKD3
- Vital Signs / Lab Results
Temp Pulse Resp BP Pulse Ox
98.1 F 67 23 104/48 99
07/18/23 07:41 07/18/23 08:30 07/18/23 08:30 07/18/23 08:00 07/18/23 08:30
Lab Results - Hematology
07/16/23 07/17/23 07/18/23
20:05 05:16 05:49
WBC 7.0 10.0 6.7
Lab Results - Chemistry
07/16/23 07/17/23 07/17/23
20:05 05:16 06:36
BUN 99 H Cancelled 101 H*
Creatinine 1.8 H Cancelled 1.6 H
Estimated Creat Clear 39 Cancelled 39
Albumin 3.3 L Cancelled 3.0 L
07/18/23
05:49
BUN 104 H*
Creatinine 1.7 H
Estimated Creat Clear 36
Albumin
07/16/23
20:05
Lactic Acid 1.2
Lab Results - Urine
07/17/23
08:59
Urine Nitrite (Reflex) Negative
Leukocyte Esterase Rfl 2+ A
Microbiology Results
07/16/23 20:28 Blood Culture - Preliminary
Blood/Venous Positive culture in progress
Gram Stain - Preliminary
07/16/23 20:05 Blood Culture - Preliminary
Blood/Venous No Growth in 24 hours- Final report to follow
07/16/23 23:44 Influenza Types A & B (RIVER) - Final
Nasal Swab Negative for Influenza A & B, NAAT
Negative results must be combined with clinical observations
and patient history.
Nucleic Acid Amplification test (NAAT)performed on the
[employer] platform.
Therapeutic Drug Monitoring
Random Vancomycin 20.5 ug/ml 07/18/23 05:49
[2023-07-18 09:43] LABS: Iron 83 ug/dl (49-181)
--- NOTE | 2023-07-18 09:49 | W.PN.INTV ---
Today's Communication / Plan
Recommendations
O2
Atbs
BPAP
Assessment
-
Assessment:
Mr Miah Kelly is an 83/M adm 07-16 from assisted living with few d h/o weakness and decreased UO through Hodge catheter. Denied CP, abd pain, n/v. Reported no change in chronic dyspnea (chronic resp failure on home O2 at 4L). At ER, bradycardic
at 43, hypothermic 91.6F, BP 93/50, bladder scan with no retained urine. Started on warming blanket, IVFs, low dose NE, CXR suspicious for basilar infiltrates
Impression:
Bradycardia
Hypothermia
Suspected sepsis of unknown source
Hypercapnia likely related to hypothermia
Troponin negative
Elevated BNP
Elevated TSH with normal fT4
Normal random cortisol
COVID/influenza negative
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
Sepsis syndrome adm Jun 2023, unclear source, received short course of vanco/meropenem
CAD status post stent 1995
HFpEF
HTN
HLD
DM
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
CKD3
Stage IV sacral wound
Anemia of chronic disease
Cervical dystonia
Morbid obesity
Stercoral colitis
Non-smoker
Plan:
Adm to ICU for symptomatic bradycardia, hypothermia and suspected sepsis
Required only 2 hrs on low dose NE
CO2 retention documented already on ABGs from Jun 2023 and intermittently serum total CO2 has been elevated since 2019
Hypothermia event likely exacerbated CO2 retention seen in VBG this adm
Stayed on BPAP 10/5 10L overnight upon adm, then transitioned to O2 10L, POx 100%, currently down to 3L with POx 100%
Continue BPAP as needed and overnight
Baseline O2 requirement 4L as outpatient
Some improvement in mentation considering reportedly poor baseline MS, denies pain and cough, appears chronically deconditioned
Blood cxs, 1/2 GPC
U cx pending
Check MRSA screening, pending
Sputum cx pending
Vanco/zosyn since adm
Adm portable CXR of poor quality
Repeat CXR with R basilar infiltrate/effusion
Bradycardia improved with low dose 2 hr use of NE and warming blanket
HR currently at 60+, temp normalized
HC stress dose started on adm, can d/c, noted normal random cortisol level
Normal fT4
Sacral wound care
Severe deconditioning which is chronic and worsening overtime
Limited DNR, not for intubation
Stable for transfer to telemetry, pulm will follow
Diagnostic tests:
CXR 07-16-23 c/w 06-16-23. Baseline film portable, rotated, low lung volumes, blurred diaphragms/effusions, RUE PICC. Current film of poor quality, low lung volumes, defib pad at R base, pulm vasc congestion
TTE 12-24-22
CONCLUSIONS
Technically difficult study.
LV ejection fraction is 70-75%, by visual assessment. Grossly normal wall motion.
Enlarged right ventricular size. Low normal right ventricular systolic function.
Mild tricuspid regurgitation. Estimated pulmonary artery pressure of 45-50 mmHg.
Compared to previous echo on 07/03/2022, the degree of tricuspid regurgitation appears to have improved (previously moderate) with a decrease in PASP (previously 83 mmHg).
Subjective Dataa
Subjective Data
Date of Service:
Date of Service: July 18, 2023
Chief Complaint: Hackler Doll Wigs Follow Up
Subjective:
No major events reported overnight
Required norepinephrine only for a couple of hours on admission
More awake today though half centimeter mental status
Review of Systems
General: Other (Limited historian)
Objective Data
Data Reviewed
Vital Signs / I&O / Oxygen:
Vital Signs
Temp Pulse Resp BP Pulse Ox
98.1 F 67 23 104/48 99
07/18/23 07:41 07/18/23 08:30 07/18/23 08:30 07/18/23 08:00 07/18/23 08:30
Intake and Output
07/17/23 07/18/23 07/19/23
06:59 06:59 06:59
Intake Total 87.5 / 87.5 1220 / 1280 110 / 110
Output Total 250 / 250 425 / 425
Balance -162.5 / -162.5 795 / 855 110 / 110
SaO2 99
Nasal Cannula flow liters per 4
minute
Physical Exam
General: Respiratory Distress (n)
HEENT: Normocephalic and Moist Mucous Membranes
Cardiovascular: Regular Rhythm and Peripheral Edema (ANDRES)
Respiratory: Clear and Stridor (n)
GI: Soft, Non Distended and Non Tender
Neurology: Awake and No Motor Deficits
Skin: Dry
Labs/Micro/Reports
Lab Data
07/18/23 05:49
07/18/23 05:49
Microbiology
07/16/23 20:28 Blood/Venous Blood Culture - Preliminary
Positive culture in progress
07/16/23 20:28 Blood/Venous Gram Stain - Preliminary
07/16/23 20:05 Blood/Venous Blood Culture - Preliminary
No Growth in 24 hours- Final report to follow
07/16/23 23:44 Nasal Swab Influenza Types A & B (RIVER) - Final
Negative for Influenza A & B, NAAT
Negative results must be combined with clinical observations
and patient history.
Nucleic Acid Amplification test (NAAT)performed on the
[employer] platform.
[2023-07-18 09:52] LABS: Percent Saturation 31 % (20-50); Total Iron Binding Capacity 265 ug/dl (261-462)
[2023-07-18 10:32] LABS: Ferritin 65.3 ng/ml (17.9-464.0)
[2023-07-18 11:03] LABS: Folate 16.4 ng/ml (2.76-20); Vitamin B12 > 1000 pg/ml (239-931)
[2023-07-18] MEDS: DEXTROSE 50% SYRINGE 12.5 GRAMS IV (11:33)
[2023-07-18] MEDS: NOVOLOG FLEXPEN-LOW RESISTANCE SC ×2 (11:36→17:46)
[2023-07-18 11:37] LABS: Glucose - Point of Care 69 mg/dl (70-99)
[2023-07-18 12:13] LABS: Glucose - Point of Care 108 mg/dl (70-99)
[2023-07-18] MEDS: D5/0.9% SODIUM CHLORIDE 1000 IV (12:16)
--- NOTE | 2023-07-18 14:24 | W.PN.HOSP.TC ---
Today's Communication/Plan
-
continue IV Abx
wean BairHugger, wean O2 as able
Assessment / Plan
Assessment / Plan
Assessment:
Acute hypoxic respiratory failure
- on continous BiPAP initially now 4L which is baseline
- continue use BiPAP prn and at night
Septic shock (hypothermia, tachypnea, hypotension) secondary to bibasilar pneumonia with small to moderate right pleural effusion
- only briefly needed pressors
- continue sepsis protocol IVF
- titrate Jayne-Hugger to off
- continue Vanco/Zosyn; follow cultures
- follow imaging
- follow pulmonary recs
Junctional bradycardia secondary to hypothermia and sepsis
- TSH 15, FT4 normal
- monitor Tele
- DC stress dose steroids
sacral wound, unstageable vs stage IV
- wound care evaluation Wednesday
Chronic Hodge on admit
- continue Flomax
- Hodge replaced in ER
Chronic hypercapnic respiratory failure
- continue use BiPAP prn and at night
Small to moderate right pleural effusion/small left pleural effusion
Coronary artery disease status post stent
- continue aspirin
- continue statin
chronic HFpEF on 3L
- hold Lasix
Essential hypertension
- hold hydralazine
Hyperlipidemia - statin
Type 2 diabetes
- SSI
CKD stage 3b
Anemia of chronic disease
Cervical dystonia/amatory dysfunction
Morbid obesity
History of constipation/stercoral colitis
- continue bowel regimen
DVT ppx: SC Heparin
Code: DNI otherwise full measures
Anticipated Discharge: > 48 hours
Subjective/Interval History
-
Date of Service: July 18, 2023
No major events reported overnight
slightly more awake today
Objective Data
-
Labs:
Laboratory Results
07/18/23
05:49
WBC 6.7
Hgb 8.0 L
Hct 27.8 L
Plt Count 117 L
Sodium 143
Potassium 4.5
Chloride 108 H
Carbon Dioxide 28
BUN 104 H*
Creatinine 1.7 H
Glucose 76
Calcium 8.1 L
Vital Signs:
Vital Signs
Temp Pulse Resp BP Pulse Ox
97 F 60 0 95/40 100
07/18/23 14:00 07/18/23 12:30 07/18/23 12:30 07/18/23 12:02 07/18/23 12:30
I&O
07/17/23 07/18/23 07/19/23
06:59 06:59 06:59
Intake Total 87.5 / 87.5 1220 / 1280 290 / 290
Output Total 250 / 250 425 / 425
Balance -162.5 / -162.5 795 / 855 290 / 290
Physical Exam
-
General: No Apparent Distress
HEENT: Normocephalic and Atraumatic
Respiratory: Clear to Auscultation
Cardiac: Regular Rhythm and S1/S2
Neuro: Awake and Alert
Psych: Calm
Data Reviewed
-
Total Time Spent with Patient (in minutes): 45
Labs: Labs Reviewed by me
[2023-07-18 17:46] LABS: Glucose - Point of Care 91 mg/dl (70-99)
[2023-07-18] MEDS: LIPITOR PO (21:35)
[2023-07-18] MEDS: XALATAN OPHTHALMIC SOLUTION 1 DROP RIGHT EYE (23:40)
[2023-07-19] VITALS (12 sets, daily range): BP systolic 97–121; BP diastolic 39–55; BMI 29.9
[2023-07-19 00:36] LABS: Glucose - Point of Care 100 mg/dl (70-99)
[2023-07-19] MEDS: NOVOLOG FLEXPEN-LOW RESISTANCE SC ×5 (00:39→23:56)
[2023-07-19] MEDS: ZOSYN 50 IV ×4 (02:55→21:10)
[2023-07-19] MEDS: D5/0.9% SODIUM CHLORIDE 1000 IV ×2 (02:58→17:33)
[2023-07-19 05:33] LABS: % Basophils 0.3 % (0-2); % Eosinophils 0.8 % (0-6); % Immature Granulocytes 0.5 % (0-0.5); % Lymphocytes 26.8 % (20.5-51.1); % Monocytes 9.7 % (1.7-9.3); % Neutrophils 61.9 % (42.2-75.2); Absolute Eosinophils 0.1 10^3/uL (0-0.7); Absolute Lymphocytes 1.6 10^3/uL (1.2-3.4); Absolute Monocytes 0.6 10^3/uL (0.1-0.6); Absolute Neutrophils 3.7 10^3/uL (1.4-6.5); Hematocrit 28.1 % (39.0-52.0); Hemoglobin 8.1 g/dL (13.0-18.0); Mean Corp Hgb Conc. 28.8 g/dL (33.0-37.0); Mean Corpuscular Hgb 26.9 pg (27.0-31.0); Mean Corpuscular Volume 93.4 fL (80.0-94.0); Nucleated Red Blood Cells % 0 % (-); Red Blood Cell Count 3.01 10^6/uL (4.70-6.10); Red Cell Dist. Width 20.3 % (11.5-14.5)
--- NOTE | 2023-07-19 05:40 | PTCARENOTE ---
Pt received at 19:00, assessment as documented. Pt remains on yamil hugger, temp ranging from 96-97.5. Small loose BM. Call mccall within reach, pt repositioned q2h. Sacral dressing changed x2 this shift, dressing as ordered.
[2023-07-19 05:56] LABS: Blood Urea Nitrogen 97 mg/dl (9-20); Calcium 8.2 mg/dl (8.4-10.2); Carbon Dioxide 29 mmol/L (22-30); Chloride 109 mmol/L (98-107); Estimated Creatinine Clearance 28 ml/min; Glucose 97 mg/dl (70-99); Potassium 4.3 mmol/L (3.5-5.1); Sodium 145 mmol/L (135-145); eGFR 29.36
[2023-07-19 06:00] LABS: Vancomycin Random 18.6 ug/ml
--- NOTE | 2023-07-19 07:46 | W.PN.INTV ---
Today's Communication / Plan
Recommendations
Cultures reviewed
Continue antibiotics
Wean oxygen
Warming blankets
Transfer out of ICU to telemetry-pulmonary will follow briefly
Assessment
-
Mr Miah Kelly is an 83/M adm 07-16-23 from assisted living with few d h/o weakness and decreased UO through Hodge catheter. Denied CP, abd pain, n/v. Reported no change in chronic dyspnea (chronic resp failure on home O2 at 4L). At ER,
bradycardic at 43, hypothermic 91.6F, BP 93/50, bladder scan with no retained urine. Started on warming blanket, IVFs, low dose NE, CXR suspicious for basilar infiltrates
Bradycardia
Hypothermia
Suspected sepsis of unknown source
Hypercapnia likely related to hypothermia
Toxic metabolic encephalopathy
Troponin negative
Elevated BNP
Anemia-normocytic
Elevated TSH with normal fT4
Normal random cortisol
COVID/influenza negative
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
Sepsis syndrome adm Jun 2023, unclear source, received short course of vanco/meropenem
CAD status post stent 1995
HFpEF
HTN
HLD
DM
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
CKD3
Stage IV sacral wound
Anemia of chronic disease
Cervical dystonia
Morbid obesity
Stercoral colitis
Non-smoker
Plan:
Hemodynamics have improved, but, still has multiple medical issues including arrhythmias, hypothermia and infection
Supplemental oxygen as needed-baseline oxygen supplementation as an outpatient-4 L
BiPAP 03/18 with 10 L as needed-often intolerant
DO NOT INTUBATE
Chest x-ray 07/17/2023-low lung volumes, basilar opacifications without change
Monitor venous blood gas if needed
Aspiration precautions
Nebulizers if needed-currently not bronchospastic
Monitor bradycardia-slowly improving
Dopamine if needed
Warming blanket continues and helping
Hydrocortisone discontinued
Monitor mental status-resolving TME
Blood cultures reviewed
Blood culture 1/2-coag negative staph
Influenza negative
Urine culture mixed and unrevealing
Sputum culture-usual respiratory yudelka
Zosyn continues
Wound care nursing
Sacral wound care
DVT prophylaxis-on subcu heparin
Nutrition
Early mobilization/physical therapy
Reviewed with nursing
Stable for transfer out of ICU to telemetry-pulmonary will follow briefly
Diagnostic tests:
CXR 07-16-23 c/w 06-16-23. Baseline film portable, rotated, low lung volumes, blurred diaphragms/effusions, RUE PICC. Current film of poor quality, low lung volumes, defib pad at R base, pulm vasc congestion
TTE 12-24-22
CONCLUSIONS
Technically difficult study.
LV ejection fraction is 70-75%, by visual assessment. Grossly normal wall motion.
Enlarged right ventricular size. Low normal right ventricular systolic function.
Mild tricuspid regurgitation. Estimated pulmonary artery pressure of 45-50 mmHg.
Compared to previous echo on 07/03/2022, the degree of tricuspid regurgitation appears to have improved (previously moderate) with a decrease in PASP (previously 83 mmHg).
Subjective Dataa
Subjective Data
Date of Service:
Date of Service: July 19, 2023
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
Subjective:
Lethargic, no increased shortness of breath, increased secretions, chest pain or abdominal pain
Review of Systems
General: Other (Per HPI)
Objective Data
Data Reviewed
Vital Signs / I&O / Oxygen:
Vital Signs
Temp Pulse Resp BP Pulse Ox
96.1 F L 62 16 109/51 99
07/19/23 06:00 07/19/23 04:30 07/19/23 04:30 07/19/23 04:00 07/19/23 04:30
Intake and Output
07/18/23 07/19/23 07/20/23
06:59 06:59 06:59
Intake Total 1220 / 1280 1510 / 1510
Output Total 425 / 425 1000 / 1000
Balance 795 / 855 510 / 510
SaO2 99
Nasal Cannula flow liters per 4
minute
Physical Exam
General: Respiratory Distress (n) and Comfortable
HEENT: Normocephalic and Moist Mucous Membranes
Cardiovascular: Regular Rhythm and Peripheral Edema (ANDRES)
Respiratory: Clear, Wheeze (n), Crackles (n), Rhonchi (n), Non-Labored Respirations, Accessory Resp Muscle Use (n) and Stridor (n)
GI: Soft, Non Distended and Non Tender
Neurology: Awake and No Motor Deficits
Skin: Dry, Good Color and Cyanosis (n)
Labs/Micro/Reports
Lab Data
07/19/23 05:15
07/19/23 05:15
Microbiology
07/16/23 20:05 Blood/Venous Blood Culture - Preliminary
No Growth in 48 hours- Final report to follow
07/17/23 12:13 Nose MRSA Screen - Final
No Methicillin Resistant Staphylococcus aureus isolated.
07/16/23 20:28 Blood/Venous Blood Culture - Preliminary
Coagulase neg. staphylococcus
07/16/23 20:28 Blood/Venous Gram Stain - Final
07/17/23 16:46 Sputum Gram Stain - Preliminary
07/17/23 08:59 Urine Urine Culture - Final
07/16/23 23:44 Nasal Swab Influenza Types A & B (RIVER) - Final
Negative for Influenza A & B, NAAT
Negative results must be combined with clinical observations
and patient history.
Nucleic Acid Amplification test (NAAT)performed on the
[employer] platform.
[2023-07-19 07:59] LABS: Anisocytosis 1+; Hypochromasia 1+; Mean Platelet Volume 11.3 fL (7.4-10.4); Normal RBC Morphology No; Ovalocytes 1+; Platelet Count 96 10^3/uL (130-400); Polychromasia 1+
[2023-07-19 08:00] LABS: Acanthocytes Occasional
--- NOTE | 2023-07-19 08:00 | PTCARENOTE ---
Assumed care of patient. Pt rec'd drowsy but arousable. Garbled speech. Follows simple commands. Assessment & VS documented. Call mccall within reach. Tx to IMU when bed available.
[2023-07-19] MEDS: DESENEX/MITRAZOL/ZEASORB 1 APPLIC TOPICAL ×2 (08:58→21:10)
[2023-07-19] MEDS: DAKIN'S SOLUTION 0.125% 1/4 STRENGTH 473 ML TOPICAL ×2 (08:58→21:09)
[2023-07-19] MEDS: HYDROPHOR 1 APPLIC TOPICAL ×2 (09:00→21:11)
[2023-07-19] MEDS: HEPARIN 5000 UNITS SC ×2 (09:00→21:10)
--- NOTE | 2023-07-19 09:30 | W.PN.HOSP.TC ---
Addendum entered and electronically signed by Jose Burr DO 07/19/23 14:35:
Atrial fibrillation with slow ventricular response noted on EKG from 07/16. Appears to be a new diagnosis.
Will consult cardiology. Recheck EKG today.
Original Note:
Today's Communication/Plan
-
Stop vancomycin
Speech therapy follow-up
Wean oxygen as able
Renal ultrasound
Assessment / Plan
Assessment / Plan
Gen-lethargic, NAD
HEENT-NC, AT, anicteric, clear oral mm
Neck-supple
CV-reg, no M, +S1/S2
Lungs-clear B/L
Abd-soft, NT, ND
Ext-no edema
Musculoskeletal-no cyanosis, clubbing
Skin-warm and dry
Neuro-grossly non-focal
Psych-calm, cooperative
Acute TME (POA) - suspect due to critical illness, sepsis, etc.
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 Creatinine up to 2.2. Check renal ultrasound
Acute on chronic hypoxic respiratory failure -due to presumed pneumonia, community-acquired. Chest x-ray shows bibasilar opacification. Cannot rule out bilateral effusions.
- on continous BiPAP initially now 4L which is baseline
- continue use BiPAP prn and at night
Chronic hypercapnic respiratory failure- continue use BiPAP prn and at night
Septic shock (hypothermia, tachypnea, hypotension) -presumably due to community-acquired pneumonia. 1 out of 2 blood cultures with coagulase negative staph, contamination. Sputum culture with usual respiratory yudelka. MRSA screen negative.
Discontinue vancomycin. Continue Zosyn for now. White blood cell count normal.
- only briefly needed pressors
- continue sepsis protocol IVF
-Still using Jayne hugger for hypothermia.
Acute dysphagia -due to acute TME, due to acute illness. Speech therapy to follow-up. Currently NPO.
Junctional bradycardia - secondary to hypothermia and sepsis
- TSH 15, FT4 normal
- monitor Tele
- DC stress dose steroids
sacral wound, unstageable vs stage IV
- wound care evaluation Wednesday
Chronic urinary retention./chronic Hodge on admit
- continue Flomax
- Hodge replaced in ER
Small to moderate right pleural effusion/small left pleural effusion
CAD status post stent
- continue aspirin
- continue statin
Chronic HFpEF on 3L
- hold Lasix
Essential hypertension
- hold hydralazine
Hyperlipidemia - statin
DM2 without hyperglycemia -appears to only be on sliding scale insulin at home. Glucose is controlled. Suspect hemoglobin A1c (5.6%) to be unreliable in the setting of chronic anemia.
Chronic anemia -normocytic. Likely multifactorial etiology. Monitor hemoglobin.
Cervical dystonia/amatory dysfunction
Obesity due to excess calories
History of constipation/stercoral colitis
- continue bowel regimen
DVT ppx: SC Heparin
Code: DNI otherwise full measures
Anticipated Discharge: > 48 hours
Subjective/Interval History
-
Date of Service: July 19, 2023
Patient seen and examined. Denies shortness of breath. Requesting to drink water. No complaints.
Objective Data
-
Labs:
Laboratory Results
07/19/23
05:15
WBC 6.0
Hgb 8.1 L
Hct 28.1 L
Plt Count 96 L
Sodium 145
Potassium 4.3
Chloride 109 H
Carbon Dioxide 29
BUN 97 H
Creatinine 2.2 H
Glucose 97
Calcium 8.2 L
Vital Signs:
Vital Signs
Temp Pulse Resp BP Pulse Ox
95.7 F L 62 16 109/51 99
07/19/23 09:00 07/19/23 04:30 07/19/23 04:30 07/19/23 04:00 07/19/23 04:30
I&O
07/18/23 07/19/23 07/20/23
06:59 06:59 06:59
Intake Total 1220 / 1280 1510 / 1510
Output Total 425 / 425 1000 / 1000
Balance 795 / 855 510 / 510
Review of Systems
-
History Source: Patient
All other systems: Reviewed and negative
--- NOTE | 2023-07-19 12:00 | PTCARENOTE ---
Order rec'd to place dhf. Pt refused. notified.
--- NOTE | 2023-07-19 12:10 | PTCARENOTE ---
WOC RN at bedside to help reposition and evaluate sacral wound.
[2023-07-19 12:11] LABS: Glucose - Point of Care 104 mg/dl (70-99)
--- NOTE | 2023-07-19 12:35 | WOUNDNOTE ---
WON RN note: Patient admitted with sepsis and pneumonia.
See H&P for complete history. From [facility], lives with , current with VN.
PMH: chronic kidney disease stage III, stage IV sacral decubitus ulcer, chronic lower extremity wound, IDDM, coronary disease with history of stent, history of bladder cancer s/p removal, history of urinary incontinence , episodic urinary retention
requiring Hodge catheterization, ambulatory dysfunction
Wound Location and type/assessment: Patient known to service for sacral PI, reviewed previous notes. Patient follows at [facility] Dr. Peterson regularly and plastic surgeon. Assessment completed with RN, Nona, patient attempts to assist with turning.
Chronic stage 4 sacral decub is less deep compared to last seen, base pink with rolled edges. Periwound is dry, mild MASD to buttocks/scrotum, miconazole in use. Left Ischium with healed PI. Heels intact.
Appetite: NPO
Pressure redistribution devices in place: Centrella Max Air. Heels off-loaded with pillows under calves. If patient transferred to floor patient will need to be on an air mattress, can use [facility] air bed.
Plan: Wound cleaned with saline and packed with Dakin's moistened gauze, abd pad and Medipore tape. Skin prep and adhesive foams to heels. Nurse Martines updated on the above, will confirm orders with hospitalist. Care plan to be updated and will
follow as needed. Recommend follow up at wound care center upon discharge.
--- NOTE | 2023-07-19 13:10 | PTCARENOTE ---
Spoke w/ pt's dtr at length...all questions answered. Pt's dtr would like to see patient prior to placing dhf.
--- NOTE | 2023-07-19 13:34 | PN.CDI ---
CDI
- -
CDI:
Physician Documentation Request
Admit Date: 07/16/23 23:37
Dear Doctor Leno,
Patient admitted with septic shock presumably due to pneumonia.
Patient is noted to wear 4L at home of O2f
Pt notes on progress note 07/19 to have 'acute on chronic hypoxic respiratory failure, and chronic hypercapnic respiratory failure'
Pulmonary's notes state on 07/18 'Hypothermia event likely exacerbated CO2 retention seen in [facility] this adm'
07/19 ' Hypercapnia likely related to hypothermia
Please clarify the respiratory failure:
Acute hypoxic respiratory failure, Chronic hypoxic and hypercapnic respiratory failure
Acute on chronic hypercapnic respiratory failure
other
Use of terms such as suspected, likely, concern for, or probable (associated with a specific diagnosis that is being evaluated, monitored, or treated as if it exists) are acceptable and can be coded in the inpatient setting, when documented at the
time of discharge.
Thank you,
Rosa Elena Fonseca RN, BSN
CDI Specialist
tiger text
Please use your independent medical judgment in providing your response.
--- NOTE | 2023-07-19 13:52 | PN.CDI ---
CDI
- -
CDI:
Physician Documentation Request
Admit Date: 07/16/23 23:37
Dear Doctor Leno,
The diagnosis of atrial fibrillation with slow ventricular response was included in the signed EKG 07/16
Please indicate in your progress notes if you are in agreement that the above diagnosis is valid for this patient:
____ - atrial fibrillation is a valid diagnosis (Please include it in your progress notes)
____ - atrial fibrillation is not a valid diagnosis for this patient
____ - Other
Use of terms such as suspected, likely, concern for, or probable are acceptable for a diagnosis that is being evaluated, monitored or treated as if it exists and can be coded in the inpatient setting, when documented at the time of discharge.
Thank you,
Rosa Elena Fonseca RN, BSN
CDI Specialist
tiger text
Please use your independent medical judgment in providing your response.
--- NOTE | 2023-07-19 14:00 | CM ---
CM following re: discharge planning.
Discussed in Rounds, reviewed pt's chart, met with pt and spoke to pt's daughter Diane.
Pt is an 83 year old male, admitted with primary dx Acute TME
Pt is well known to this CM from previous admissions, lives with in [facility] personal care, has supportive daughter Alec and son Varun. Pt reports he requires total care, has home helpers / caregiver services, [facility]
RN services, [facility], [facility] and private RN services for wound care. Pt expressed his desire to return back to [facility] with resumptions of all services. Pt stated he is not interested in going to a SNF. Pt's
daughter supports pt's plan to return back to his apartment with resumptions of all services at home
PCP: aBljinder Chung
Pharmacy: [facility]
D/C plan: Plan A: return to [facility] with [facility], [facility], [facility] caregiver services and [facility] RN services.
CM will follow with discharge plan updates as hospitalization progresses.
--- NOTE | 2023-07-19 14:56 | CON.CAR ---
Addendum entered and electronically signed by Devang Oliva MD 07/19/23 17:51:
83 yo male with CAD prior stent, chronic Hodge, chronic anemia, ambulatory dysfunction, sacral wound, multiple recent admissions for hypothermia, sepsis. Admitted with hypothermia, sepsis. We are consulted for paroxysmal A fib. He denies chest
pain, palps. Exam with RRR, II/ systolic murmur at RUSB, 1+ LE edema.
By my review of EKG and tele, last A fib was in June. Patient also had Hgb 6.8 at that time, and was not started on OAC. He is also not on an AV ananda agent due to bradycardia. Would remain off of OAC at this time.
Original Note:
Consultation
Consultation Request
Date/Time Consultation Requested: 07/19/23 14:30
Date/Time Consultation Performed: 07/19/23 15:00
Requesting Provider: Dr. Burr
Performing Provider: BRYANAN Tobias for Dr. Oliva
Reason for Consultation: Atrial fibrillation
Medical History
-
Chief Complaint: Weakness
History of Present Illness:
Miah Kelly is an 83-year-old male (known to Dr. Acosta, his primary poke in) with CAD status post PCI, chronic HFpEF, hypertension, hyperlipidemia, diabetes, chronic Hodge catheter with history of catheter associated UTI, CKD3, stage IV
sacral wound, anemia of chronic disease, cervical dystonia/amatory dysfunction, morbid obesity, stercoral colitis, presenting from [facility] for generalized weakness. He was diagnosed with TME, DIGNA, and CAP. Cardiology was consulted for
paroxysmal atrial fibrillation. He has had six admissions in the last 12 months, this is his 7th.
His daughter was at the bedside during this consultation.
Past Medical History
Past Medical History: CAD, CHF, HTN, Hypercholesterolemia, NIDDM and Renal Failure (CKD3)
Past Surgical History: Orthopedic
Social History
Tobacco: Non-Smoker
Personal:
Living: Assisted Living
Employment: Retired
Family History
Family History: Reviewed & Not Pertinent
Allergies / Home Medications
Allergy/AdvReac Type Severity Reaction Status Date / Time
erythromycin base Allergy 'a long Verified 06/14/23 15:00
time ago-
can't
remember'
Opioids - Morphine Analogues Allergy Unknown Verified 06/14/23 15:00
tetracycline Allergy Unknown Verified 06/14/23 15:00
clonazepam AdvReac constipatio Verified 06/14/23 15:00
n
meperidine AdvReac agitated Verified 06/14/23 15:00
shellfish derived AdvReac Swelling/hx Verified 06/14/23 15:00
gout
Medication Instructions Recorded Confirmed Type
simvastatin 20 mg tablet 20 mg PO HS High cholesterol 06/30/12 07/16/23 History
acetaminophen 325 mg tablet 650 mg PO Q4HPRN PRN mild 07/02/22 07/16/23 History
pain/fever>100.4
azelastine 137 mcg (0.1 %) nasal 1 spray intranasal DAILY Allergies 07/02/22 07/16/23 History
spray aerosol
cholecalciferol (vitamin D3) 25 25 mcg PO DAILY Supplement 07/02/22 07/16/23 History
mcg (1,000 unit) tablet (Vitamin
D3)
fluticasone propionate 50 1 spray intranasal DAILY Congestion 07/02/22 07/16/23 History
mcg/actuation nasal
spray,suspension
bisacodyl 10 mg rectal suppository 10 mg MT DAILYPRN PRN if MOM 11/08/22 07/16/23 History
(Dulcolax (bisacodyl)) ineffective
insulin aspart U-100 100 unit/mL 0 unit SC AC Diabetes 11/08/22 07/16/23 History
(3 mL) subcutaneous pen (Novolog
FlexPen U-100 Insulin aspart)
amino ac-protein hydro-whey 1 ea PO BID nutrition 12/22/22 07/16/23 History
protein 10 gram-100 kcal/30 mL
oral liquid (ProSource)
aspirin 81 mg tablet,delayed 81 mg PO DAILY Blood Clot 12/22/22 07/16/23 History
release Prevention/Tx
magnesium hydroxide 400 mg/5 mL 2,400 mg PO [id number] PRN if no BM 12/22/22 07/16/23 History
oral suspension (Milk of Magnesia) for 9 shifts
furosemide 40 mg tablet (Lasix) 40 mg PO DAILYPRN PRN edema 04/02/23 07/16/23 History
miconazole nitrate 2 % topical 1 applic topical BID B/L groin rash 04/02/23 07/16/23 History
powder (Micro-Guard)
promethazine-DM 6.25 mg-15 mg/5 mL 5 ml PO Q6HPRN PRN cough 04/02/23 07/16/23 History
oral syrup
sodium hypochlorite 0.125 % 1 applic topical BID apply to 04/02/23 07/16/23 History
solution (Dakin's Solution) sacral wound
sodium hypochlorite 0.125 % 1 applic topical DAILYPRN PRN left 04/02/23 07/16/23 History
solution (Dakin's Solution) ischium/soilage
tamsulosin 0.4 mg capsule 0.4 mg PO QPM Urinary Issue 04/02/23 07/16/23 History
hydralazine 25 mg tablet 25 mg PO TID #90 tabs 04/07/23 07/16/23 Rx
cyanocobalamin (vitamin B-12) 500 2,000 mcg PO DAILY Supplement 05/20/23 07/16/23 History
mcg tablet
ibuprofen 400 mg tablet 400 mg PO BIDPRN PRN mild pain 05/20/23 07/16/23 History
mineral oil-hydrophil petrolat 1 applic topical HS B/L lower legs 05/20/23 07/16/23 History
topical ointment (Aquaphor topical and feet
ointment)
polyethylene glycol 3350 17 gram 17 g PO DAILY PRN Constipation 05/20/23 07/16/23 History
oral powder packet
sodium chloride 0.65 % nasal spray 1 spray intranasal DAILYPRN PRN 05/20/23 07/16/23 History
aerosol congestion ##0
sodium phosphates 19 gram-7 118 ml MT DAILYPRN PRN if no bm 05/20/23 07/16/23 History
gram/118 mL enema (Ycojt-Bs-Umd aftr dulcolax on 4th day
Enema)
guaifenesin 100 mg/5 mL oral liquid 200 mg PO Q4HPRN PRN cough 06/02/23 07/16/23 History
latanoprost 0.005 % eye drops 1 drp RIGHT EYE HS Eye Condition 06/02/23 07/16/23 History
nitrofurantoin macrocrystal 100 mg 100 mg PO DAILY Infection 06/02/23 07/16/23 History
capsule
phenylephrine HCl 10 mg tablet 10 mg PO Q6HPRN PRN congestion 06/02/23 07/16/23 History
(Nasal Decongestant
(phenylephrine))
sennosides 8.6 mg tablet (senna) 8.6 mg PO BIDPRN PRN constipation 06/02/23 07/16/23 History
phenylephrine HCl 1 % nasal spray 1 spray intranasal Q6HPRN PRN 06/14/23 07/16/23 History
(Fitz-Synephrine (phenylephrine)) congestion
sodium hypochlorite 0.125 % 1 applic topical DAILYPRN PRN 06/14/23 07/16/23 History
solution (Dakin's Solution) soilage
mineral oil-hydrophil petrolat 1 applic topical DAILY sacral woud 07/16/23 07/16/23 History
topical ointment (Aquaphor topical
ointment)
Review of Systems
-
History Source: Patient
Constitutional: Fatigue
EENT: No Symptoms
Respiratory: No Symptoms
Cardiac: No Symptoms
Abdomen/GI: No Symptoms
Physical Exam
Vital Signs
Temp Pulse Resp BP Pulse Ox
96.2 F L 62 16 102/48 98
07/19/23 13:00 07/19/23 12:00 07/19/23 12:00 07/19/23 12:00 07/19/23 12:00
Lab Results
07/19/23 05:15
07/19/23 05:15
Troponin I < 0.012 ng/ml 07/16/23 20:05
Pkk-B-Izvtcxprvaa Pept Cancelled 07/16/23 23:38
Physical Exam
General: Well Developed, Well Nourished, No Apparent Distress and Comfortable
HEENT: Normocephalic, Anicteric and Moist Mucous Membranes
Respiratory: Clear (diminished; poor inspiratory effort)
Cardiac: S1/S2 and Regular Rhythm
Breast: Deferred by me
GI: Soft, Non Tender, Non Distended and Normal Bowel Sounds
Rectal: Deferred by Provider
Genito-urinary: No Costovertebral Tender
Musculoskeletal: No Clubbing, No Cyanosis and No Edema
Skin: Warm
Neuro: AO x 3
Hematologic/Lymphatic: No Lymphadenopathy
Psych: Calm
Impression / Plan
-
Paroxysmal atrial fibrillation
-No beta dara due to bradycardia
-No AF seen this admission, seen in June (cardiology was not following)
-Oral Anticoagulation: None prior to arrival
-[id number]: Score at least 5 (Heart failure, HTN, age 75 or more, Vascular disease)
Acute on chronic respiratory failure in the setting of CAP
Septic shock, in the setting of CAP
Hypothermia, requiring Jayne Hugger
CAD - ASA & statin
HFpEF, chronic, he is not in acute HF
Pulmonary HTN, severe
HTN, now with borderline hypotension
Dyslipidemia - statin
DMII
DIGNA on CKD3a
Unstageable sacral wound
Data Reviewed
-
EKG: Report Reviewed by me (Sinus rhythm, rate 63)
Radiology: Report Reviewed by me (CXR: Extremely low lung volumes. Bibasilar opacification again seen without significant change most likely representing atelectasis and/or pneumonia as well as possible bilateral pleural effusions.)
Labs: Labs Reviewed by me
Old Records: Reviewed
--- NOTE | 2023-07-19 17:30 | PTCARENOTE ---
Left nare dhf placed w/o issue. CXR done to confirm placement.
[2023-07-19] MEDS: LEVOTHROID 25 MCG IV (17:34)
[2023-07-19 17:47] LABS: Glucose - Point of Care 109 mg/dl (70-99)
--- NOTE | 2023-07-19 21:00 | PTCARENOTE ---
after school program assistant, pt oriented x 3, T 96.9F- yamil hugger off. SR HR 60s, RH IV WNL- IVF per work list. Sat 99% on 4L NC. dht in place, clamped. Hodge cath draining yellow urine. wound care documentation on work list. POC discussed w/pt.
[2023-07-19] MEDS: XALATAN OPHTHALMIC SOLUTION 1 DROP RIGHT EYE (21:12)
[2023-07-19] MEDS: LIPITOR 10 MG PO (21:12)
--- NOTE | 2023-07-19 23:45 | PTCARENOTE ---
pt found to have dht removed and on lap, removed pulse ox and nasal cannula. pt oriented to self/place. reminded to leave monitors/IV line in place. no further changes in assessment.
[2023-07-20] VITALS (14 sets, daily range): BP systolic 85–108; BP diastolic 40–70; BMI 30.1
[2023-07-20 00:06] LABS: Glucose - Point of Care 105 mg/dl (70-99)
[2023-07-20] MEDS: ZOSYN 50 IV ×2 (03:00→08:06)
[2023-07-20 04:23] LABS: % Basophils 0.3 % (0-2); % Eosinophils 0.8 % (0-6); % Immature Granulocytes 0.6 % (0-0.5); % Lymphocytes 24.8 % (20.5-51.1); % Monocytes 7.2 % (1.7-9.3); % Neutrophils 66.3 % (42.2-75.2); Absolute Eosinophils 0.1 10^3/uL (0-0.7); Absolute Lymphocytes 1.7 10^3/uL (1.2-3.4); Absolute Monocytes 0.5 10^3/uL (0.1-0.6); Absolute Neutrophils 4.4 10^3/uL (1.4-6.5); Hematocrit 29.9 % (39.0-52.0); Hemoglobin 8.4 g/dL (13.0-18.0); Mean Corp Hgb Conc. 28.1 g/dL (33.0-37.0); Mean Corpuscular Hgb 26.7 pg (27.0-31.0); Mean Corpuscular Volume 94.9 fL (80.0-94.0); Mean Platelet Volume 11.1 fL (7.4-10.4); Nucleated Red Blood Cells % 0.3 % (-); Platelet Count 94 10^3/uL (130-400); Red Blood Cell Count 3.15 10^6/uL (4.70-6.10); Red Cell Dist. Width 20.4 % (11.5-14.5); White Blood Cell Count 6.6 10^3/uL (4.8-10.8)
[2023-07-20 04:42] LABS: Blood Urea Nitrogen 98 mg/dl (9-20); Calcium 8.2 mg/dl (8.4-10.2); Carbon Dioxide 28 mmol/L (22-30); Chloride 112 mmol/L (98-107); Estimated Creatinine Clearance 28 ml/min; Glucose 125 mg/dl (70-99); Potassium 4.2 mmol/L (3.5-5.1); Sodium 148 mmol/L (135-145); eGFR 29.36
--- NOTE | 2023-07-20 05:31 | PTCARENOTE ---
no changes in pt assessment.
[2023-07-20] MEDS: NOVOLOG FLEXPEN-LOW RESISTANCE SC ×3 (05:53→18:03)
--- NOTE | 2023-07-20 07:41 | W.PN.INTV ---
Today's Communication / Plan
Recommendations
Wean oxygen
Aspiration precautions
Monitor for bradycardia arrhythmia
Transfer out of ICU or even IMU-pulmonary will sign off-please call with questions
Assessment
-
Mr Miah Kelly is an 83/M adm 07-16-23 from assisted living with few d h/o weakness and decreased UO through Hodge catheter. Denied CP, abd pain, n/v. Reported no change in chronic dyspnea (chronic resp failure on home O2 at 4L). At ER,
bradycardic at 43, hypothermic 91.6F, BP 93/50, bladder scan with no retained urine. Started on warming blanket, IVFs, low dose NE, CXR suspicious for basilar infiltrates
Bradycardia
Hypothermia
Suspected sepsis of unknown source
Hypercapnia likely related to hypothermia
Pleural effusion
Toxic metabolic encephalopathy
Troponin negative
Elevated BNP
Anemia-normocytic
Elevated TSH with normal fT4
Normal random cortisol
COVID/influenza negative
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
Sepsis syndrome adm Jun 2023, unclear source, received short course of vanco/meropenem
CAD status post stent 1995
HFpEF
HTN
HLD
DM
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
CKD3
Stage IV sacral wound
Anemia of chronic disease
Cervical dystonia
Morbid obesity
Stercoral colitis
Non-smoker
Plan:
Hemodynamics have improved as well as respiratory status
Supplemental oxygen as needed-baseline oxygen supplementation as an outpatient-4 L
BiPAP 10/5 with 10 L as needed-often intolerant
DO NOT INTUBATE
Chest x-ray 07/17/2023-low lung volumes, basilar opacifications without change
Chest x-ray 07/20/2023-tip of feeding tube in stomach, interstitial airspace disease in both lungs with moderate right pleural effusion
Aspiration precautions continue
Nebulizers if needed-currently not bronchospastic
Follow pleural effusion and thoracentesis if patient symptomatically or clinically needed otherwise
Follow bradycardia-slowly improving
Dopamine if needed-has not needed
Cardiology following-correspondence reviewed-would not recommend oral anticoagulant, avoid AV ananda agents, signed off 07/20/2023
Warming blanket continues and helping
Hydrocortisone discontinued as random cortisol elevated
Follow mental status-resolving TME
Blood cultures reviewed
Blood culture 1/2-coag negative staph
Influenza negative
Urine culture mixed and unrevealing
Sputum culture-usual respiratory yudelka
Zosyn continues
Wound care nursing
Sacral wound care
DVT prophylaxis-on subcu heparin
Nutrition
Early mobilization/physical therapy
Reviewed with nursing
Stable for transfer out of ICU to telemetry-back on 4 L oxygen-Home oxygen-pulmonary will sign off-please call with questions
Diagnostic tests:
CXR 07-16-23 c/w 06-16-23. Baseline film portable, rotated, low lung volumes, blurred diaphragms/effusions, RUE PICC. Current film of poor quality, low lung volumes, defib pad at R base, pulm vasc congestion
TTE 12-24-22
CONCLUSIONS
Technically difficult study.
LV ejection fraction is 70-75%, by visual assessment. Grossly normal wall motion.
Enlarged right ventricular size. Low normal right ventricular systolic function.
Mild tricuspid regurgitation. Estimated pulmonary artery pressure of 45-50 mmHg.
Compared to previous echo on 07/03/2022, the degree of tricuspid regurgitation appears to have improved (previously moderate) with a decrease in PASP (previously 83 mmHg).
Subjective Dataa
Subjective Data
Date of Service:
Date of Service: July 20, 2023
Chief Complaint: Interpretive Program Coordinator Follow Up and Pulmonary Follow Up
Subjective:
Noncommunicative, unable to obtain review of systems, no respiratory distress, pulled out feeding tube
Review of Systems
General: Other (Per HPI)
Objective Data
Data Reviewed
Vital Signs / I&O / Oxygen:
Vital Signs
Temp Pulse Resp BP Pulse Ox
96 F L 67 15 92/41 98
07/20/23 06:00 07/20/23 06:30 07/20/23 06:30 07/20/23 06:02 07/20/23 06:30
Intake and Output
07/19/23 07/20/23 07/21/23
06:59 06:59 06:59
Intake Total 1510 / 1580 1340 / 1340
Output Total 1000 / 1000 610 / 610
Balance 510 / 580 730 / 730
SaO2 98
Nasal Cannula flow liters per 4
minute
Physical Exam
General: Respiratory Distress (n) and Comfortable
HEENT: Normocephalic and Moist Mucous Membranes
Cardiovascular: Regular Rhythm and Peripheral Edema (ANDRES)
Respiratory: Clear, Wheeze (n), Crackles (n), Rhonchi (n), Non-Labored Respirations, Accessory Resp Muscle Use (n) and Stridor (n)
GI: Soft, Non Distended and Non Tender
Neurology: Awake and No Motor Deficits
Skin: Dry, Good Color and Cyanosis (n)
Labs/Micro/Reports
Lab Data
07/20/23 04:06
07/20/23 04:06
Microbiology
07/16/23 20:05 Blood/Venous Blood Culture - Preliminary
No Growth in 72 hours- Final report to follow
07/16/23 20:28 Blood/Venous Blood Culture - Preliminary
Coagulase neg. staphylococcus
Additional testing on request
07/16/23 20:28 Blood/Venous Gram Stain - Final
07/17/23 16:46 Sputum Respiratory Culture - Preliminary
Usual Respiratory Yudelka
07/17/23 16:46 Sputum Gram Stain - Preliminary
07/17/23 12:13 Nose MRSA Screen - Final
No Methicillin Resistant Staphylococcus aureus isolated.
07/17/23 08:59 Urine Urine Culture - Final
--- NOTE | 2023-07-20 08:00 | PTCARENOTE ---
Received patient from tin stacker. patient had pulled out dobhoff tube last night. Reordered dbt insertion and bilateral wrist restraints. Patient is lethargic, slow to respond. currently drooling slightly. He remains on 4L nasal cannula,
coarse and decreased throughout. sinus rhythm with 1st degree block on monitor. bilateral lower extremity edema. Replaced dobhoff tube, patient has indwelling urinary catheter. sacral Wound as charted in worklist. will continue to turn and
reposition [id number] and maintain safe environment.
[2023-07-20] MEDS: D5/0.9% SODIUM CHLORIDE 1000 IV (08:06)
[2023-07-20] MEDS: DESENEX/MITRAZOL/ZEASORB 1 APPLIC TOPICAL ×2 (08:08→19:20)
[2023-07-20] MEDS: HEPARIN 5000 UNITS SC ×2 (08:08→19:20)
[2023-07-20] MEDS: HYDROPHOR 1 APPLIC TOPICAL ×2 (08:09→21:24)
[2023-07-20] MEDS: DAKIN'S SOLUTION 0.125% 1/4 STRENGTH 473 ML TOPICAL ×2 (08:10→19:20)
--- NOTE | 2023-07-20 08:12 | W.PN.HOSP.TC ---
Addendum entered and electronically signed by Jose Burr DO 07/20/23 16:37:
chronic stage 4 sacral decub (POA) - continue local wound care.
Original Note:
Today's Communication/Plan
-
DHT
Hypotonic Fluids
Assessment / Plan
Assessment / Plan
Gen-lethargic, NAD
HEENT-NC, AT, anicteric, clear oral mm
Neck-supple
CV-reg, no M, +S1/S2
Lungs-clear B/L
Abd-soft, NT, ND
Ext-no edema
Musculoskeletal-no cyanosis, clubbing
Skin-warm and dry
Neuro-grossly non-focal
Psych-calm, cooperative
Acute TME (POA) - suspect due to critical illness, sepsis, etc. still looks lethargic today. Slow to respond to questions.
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 Creatinine stable at 2.2. Renal ultrasound negative for hydro.
Acute on chronic hypoxic respiratory failure -due to presumed pneumonia, community-acquired. Chest x-ray shows bibasilar opacification. Cannot rule out bilateral effusions.
- on continous BiPAP initially now 4L which is baseline
- continue use BiPAP prn and at night
Chronic hypercapnic respiratory failure- continue use BiPAP prn and at night
Septic shock (hypothermia, tachypnea, hypotension) -presumably due to community-acquired pneumonia. 1 out of 2 blood cultures with coagulase negative staph, contamination. Sputum culture with usual respiratory yudelka. MRSA screen negative. White
blood cell counts normal. At this point we do not have a clear diagnosis of infection. Hold further antibiotics and observe.
- only briefly needed pressors
- continue sepsis protocol IVF
-Still using Jayne hugger for hypothermia.
Acute dysphagia -due to acute TME, due to acute illness. Speech therapy to follow-up. Currently NPO. Dobbhoff tube placed yesterday but patient pulled it out. Nursing to place another today. Restraints ordered.
Hypernatremia -due to dehydration. Will use hypotonic fluids.
Junctional bradycardia - secondary to hypothermia and sepsis
- TSH 15, FT4 normal
- monitor Tele
- DC stress dose steroids
Subclinical hypothyroidism -Free T4 normal, TSH 15. Continue low-dose Synthroid.
sacral wound, unstageable vs stage IV
- wound care evaluation Wednesday
Chronic urinary retention./chronic Hodge on admit
- continue Flomax
- Hodge replaced in ER
Small to moderate right pleural effusion/small left pleural effusion
CAD status post stent
- continue aspirin
- continue statin
Chronic HFpEF on 3L
- hold Lasix
Essential hypertension
- hold hydralazine
Hyperlipidemia - statin
DM2 without hyperglycemia -appears to only be on sliding scale insulin at home. Glucose is controlled. Suspect hemoglobin A1c (5.6%) to be unreliable in the setting of chronic anemia.
Chronic anemia -normocytic. Likely multifactorial etiology. Monitor hemoglobin.
Cervical dystonia/amatory dysfunction -has not walked independently for about a year according to family. This portends a poor prognosis overall.
Obesity due to excess calories
History of constipation/stercoral colitis
- continue bowel regimen
DVT ppx: SC Heparin
Code: DNI otherwise full measures
Daughter updated on the phone. Overall prognosis very poor. I feel that hospice would be appropriate. Discussed candidly with patient's daughter Diane on the phone. She is receptive but she needs to speak further with her other family members.
Anticipated Discharge: > 48 hours
Subjective/Interval History
-
Date of Service: July 20, 2023
Patient seen and examined. No complaints.
Objective Data
-
Labs:
Laboratory Results
07/20/23
04:06
WBC 6.6
Hgb 8.4 L
Hct 29.9 L
Plt Count 94 L
Sodium 148 H
Potassium 4.2
Chloride 112 H
Carbon Dioxide 28
BUN 98 H
Creatinine 2.2 H
Glucose 125 H
Calcium 8.2 L
Vital Signs:
Vital Signs
Temp Pulse Resp BP Pulse Ox
96 F L 67 15 92/41 98
07/20/23 06:00 07/20/23 06:30 07/20/23 06:30 07/20/23 06:02 07/20/23 06:30
I&O
07/19/23 07/20/23 07/21/23
06:59 06:59 06:59
Intake Total 1510 / 1580 1340 / 1340
Output Total 1000 / 1000 610 / 610
Balance 510 / 580 730 / 730
Review of Systems
-
History Source: Patient
All other systems: Reviewed and negative
--- NOTE | 2023-07-20 08:46 | W.PN.CD ---
Today's Communication / Plan
-
avoid AV ananda agents due to bradycardia
would not recommend OAC
discussed with hospitalist team
please call us back with additional questions
Impression / Plan
-
Paroxysmal atrial fibrillation
-No beta dara due to bradycardia
-No AF seen this admission: last seen in June
-Oral Anticoagulation: None prior to arrival
-[id number]: Score at least 5 (Heart failure, HTN, age 75 or more, Vascular disease)
-I would not recommend OAC due to multiple co-morbidities making him a high bleeding risk
Hypothermia, requiring Jayne Hugger
CAD - ASA & statin
HFpEF, chronic
Pulmonary HTN, severe
HTN, now with borderline hypotension
Dyslipidemia - statin
DMII
DIGNA on CKD3a
Unstageable sacral wound
Physical Exam
Vital Signs/Labs
Vital Signs
Temp Pulse Resp BP Pulse Ox
97.4 F 70 15 107/70 98
07/20/23 08:00 07/20/23 08:30 07/20/23 08:30 07/20/23 08:19 07/20/23 08:30
07/19/23 07/20/23 07/21/23
06:59 06:59 06:59
Actual Weight 97.3 kg 98 kg
07/20/23 04:06
07/20/23 04:06
PT 14.6 Sec (11.4-14.6) 07/17/23 05:16
INR 1.16 07/17/23 05:16
APTT 39.9 Sec (23.4-35.0) H 07/17/23 05:16
Free T4 1.07 ng/dl (0.78-2.19) 07/16/23 20:05
07/16/23 07/16/23
20:05 23:38
Wdn-R-Dmynbvlsbjh Pept 8440 Cancelled
Physical Exam
Constitutional: No acute distress
EENT: Moist mucous membranes
Cardiovascular: Rhythm & rate is regular, JVD pressure is normal and Pedal edema present
Respiratory: Respiratory effort normal
Neuro/Psych: Other (lethargic)
Data Reviewed
-
Date of Service: July 20, 2023
EKG: Other (Tele: SR 60s)
[2023-07-20] MEDS: D5W 1000 IV (10:16)
[2023-07-20] MEDS: LOW STRENGTH ASPIRIN 81 MG TUBE (11:07)
--- NOTE | 2023-07-20 11:50 | PTCARENOTE ---
Initiated tube feed Jevity 1.5 at 20ml/hr as ordered once CXR verified Dobhoff placement. patient is minimally verbal, continue to turn and reposition q2 and maintain safe environment.
[2023-07-20 12:05] LABS: Glucose - Point of Care 141 mg/dl (70-99)
--- NOTE | 2023-07-20 13:41 | PTCARENOTE ---
notified dr. basurto of patient's low BP, midodrine ordered.
[2023-07-20] MEDS: ProAmatine 10 MG TUBE ×2 (13:49→17:19)
--- NOTE | 2023-07-20 16:00 | PTCARENOTE ---
No change in patient's assessment, patient has been lethargic all day, low BP, low urine output through urimeter. Patient's family moving towards ongoing hospice discussion. would like to figure out how to prepare the patient's who has
dementia
--- NOTE | 2023-07-20 16:06 | CM ---
CM following re: discharge planning.
Reviewed pt's chart, met with p[t and pt's daughter Renee at bedside.
Pt's daughter stated she spoke to MD this morning and she agrees that the next level of care will be hospice care. Pt's daughter stated she would like to stabilize the pt and a plan will be to bring pt home on hospice care and resumptions of 24/7
caregiver services. Pt's daughter stated she will discuss it with her brother who lives in [place] and he will come here to meet with the pt.
D/C plan: home to [facility] with probably hospice care, resumptions of 24/7 caregiver services and family support.
CM will follow with discharge plan updates as hospitalization progresses
--- NOTE | 2023-07-20 16:11 | PN.CDI ---
CDI
- -
CDI:
Physician Documentation Request
Admit Date: 07/16/23 23:37
Dear Doctor Leno,
Hospitalist note states 'sacral wound, unstageable vs stage IV'
/ WOCN note states 'chronic stage 4 sacral decub .....'
Physician documentation of the type and location of wounds is required for compliant documentation. Based on the above clinical findings and your assessment, please provide the following in your progress note:
Type (etiology) of ulcer/wound
- Pressure (decubitus) ulcer
- Diabetic ulcer
- Traumatic wound
- Other
Use of terms such as suspected, likely, concern for, or probable (associated with a specific diagnosis that is being evaluated, monitored, or treated as if it exists) are acceptable and can be coded in the inpatient setting, when documented at the
time of discharge.
Thank you,
Rosa Elena Fonseca RN, BSN
CDI Specialist
tiger text
Please use your independent medical judgment in providing your response.
*Source: National Pressure Ulcer Advisory Panel (NPUAP)
[2023-07-20] MEDS: LEVOTHROID 25 MCG IV (17:19)
[2023-07-20 17:44] LABS: Glucose - Point of Care 148 mg/dl (70-99)
--- NOTE | 2023-07-20 19:53 | PTCARENOTE ---
rec`d pt at 1900 lethargic. Pt awakens to verbal stimuli but doesn't have purposeful movement. pt consistently has fallen neck. SR on monitor. +2 edema throughout. 20g in rt hand. Restraints on pt. 4L NC satting at 98%. diminished lung sounds. left
nare dobhoff in place running TF. jevity @20 w/ a 25 flush. chronic chatterjee with a temp sensing. stage 4 sacral wound. safe environment.
[2023-07-20] MEDS: LIPITOR PO (21:25)
[2023-07-20] MEDS: XALATAN OPHTHALMIC SOLUTION 1 DROP RIGHT EYE (21:25)
[2023-07-20 23:32] LABS: Glucose - Point of Care 208 mg/dl (70-99)
[2023-07-21] VITALS (8 sets, daily range): BP systolic 92–136; BP diastolic 46–64; BMI 31.1
--- NOTE | 2023-07-21 00:06 | PTCARENOTE ---
pt reassessed. no changes in pt assessment. safe environment maintained.
[2023-07-21] MEDS: NOVOLOG FLEXPEN-LOW RESISTANCE 2 UNITS SC (00:16)
[2023-07-21 04:26] LABS: % Basophils 0.3 % (0-2); % Eosinophils 0.8 % (0-6); % Lymphocytes 24.6 % (20.5-51.1); % Monocytes 7.8 % (1.7-9.3); % Neutrophils 65.5 % (42.2-75.2); Absolute Eosinophils 0.1 10^3/uL (0-0.7); Absolute Immature Granulocytes 0.1 10^3/uL (0-0.05); Absolute Lymphocytes 2.1 10^3/uL (1.2-3.4); Absolute Monocytes 0.7 10^3/uL (0.1-0.6); Absolute Neutrophils 5.7 10^3/uL (1.4-6.5); Hematocrit 29.8 % (39.0-52.0); Hemoglobin 8.3 g/dL (13.0-18.0); Mean Corp Hgb Conc. 27.9 g/dL (33.0-37.0); Mean Corpuscular Hgb 26.4 pg (27.0-31.0); Mean Corpuscular Volume 94.9 fL (80.0-94.0); Mean Platelet Volume 12.1 fL (7.4-10.4); Nucleated Red Blood Cells % 0.3 % (-); Platelet Count 108 10^3/uL (130-400); Red Blood Cell Count 3.14 10^6/uL (4.70-6.10); Red Cell Dist. Width 20.4 % (11.5-14.5); White Blood Cell Count 8.7 10^3/uL (4.8-10.8)
[2023-07-21 05:16] LABS: Blood Urea Nitrogen 102 mg/dl (9-20); Calcium 8.2 mg/dl (8.4-10.2); Carbon Dioxide 27 mmol/L (22-30); Chloride 109 mmol/L (98-107); Estimated Creatinine Clearance 28 ml/min; Glucose 176 mg/dl (70-99); Potassium 4.5 mmol/L (3.5-5.1); Sodium 144 mmol/L (135-145); eGFR 25.18
[2023-07-21] MEDS: NOVOLOG FLEXPEN-LOW RESISTANCE 1 UNITS SC (05:51)
[2023-07-21 06:01] LABS: Glucose - Point of Care 163 mg/dl (70-99)
--- NOTE | 2023-07-21 07:40 | W.PN.HOSP.TC ---
Today's Communication/Plan
-
Transfer to [facility]
Hospice consult
Assessment / Plan
Assessment / Plan
Gen-lethargic, NAD
HEENT-NC, AT, anicteric, clear oral mm
Neck-supple
CV-reg, no M, +S1/S2
Lungs-clear B/L
Abd-soft, NT, ND
Ext-no edema
Musculoskeletal-no cyanosis, clubbing
Skin-warm and dry
Neuro-grossly non-focal
Psych-calm, cooperative
Acute TME (POA) - suspect due to critical illness, sepsis, etc. still looks lethargic today.
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 Creatinine rising, 2.5 today. Renal ultrasound negative for hydro.
Acute on chronic hypoxic respiratory failure -initial working diagnosis was pneumonia but at this point in time I am not convinced he has pneumonia. White blood cell count has remained normal. Cultures are unrevealing. He is not coughing. Oxygen
requirements are at baseline 4 L nasal cannula. July 17 chest x-ray with bibasilar opacification, unclear if atelectasis and/or pneumonia as well as possible bilateral pleural effusions.
- on continous BiPAP initially, now 4L which is baseline
- continue use BiPAP prn and at night
Chronic hypercapnic respiratory failure- continue use BiPAP prn and at night
Septic shock (hypothermia, tachypnea, hypotension) -unclear etiology of septic shock. 1 out of 2 blood cultures with coagulase negative staph, contamination. Sputum culture with usual respiratory yudelka. MRSA screen negative. White blood cell
counts normal. At this point we do not have a clear diagnosis of infection. Hold further antibiotics and observe.
- only briefly needed pressors. Midodrine started.
- continue sepsis protocol IVF
-Still using Jayne hugger for hypothermia.
Acute dysphagia -due to acute TME, due to acute illness. Dobbhoff tube in place, getting tube feeds.
Hypernatremia -due to dehydration. Sodium improving with hypotonic fluids.
Junctional bradycardia - secondary to hypothermia and sepsis
- TSH 15, FT4 normal
- monitor Tele
- DC stress dose steroids
Subclinical hypothyroidism -Free T4 normal, TSH 15. Continue low-dose Synthroid.
Chronic stage 4 sacral decub (POA) - continue local wound care.
Chronic urinary retention./chronic Hodge on admit
- continue Flomax
- Hodge replaced in ER
Small to moderate right pleural effusion/small left pleural effusion
CAD status post stent
- continue aspirin
- continue statin
Chronic HFpEF -furosemide on hold due to DIGNA. Very difficult assessing his volume status.
Essential hypertension - hold hydralazine given hypotension.
Hyperlipidemia - statin
DM2 without hyperglycemia -appears to only be on sliding scale insulin at home. Glucose is controlled. Suspect hemoglobin A1c (5.6%) to be unreliable in the setting of chronic anemia.
Chronic anemia -normocytic. Likely multifactorial etiology. Monitor hemoglobin.
Acute thrombocytopenia (POA) -unclear etiology. Counts are stable.
Cervical dystonia/ambulatory dysfunction -has not walked independently for about a year according to family. This portends a poor prognosis overall.
Obesity due to excess calories
History of constipation/stercoral colitis
- continue bowel regimen
DVT ppx: SC Heparin
Code: DNI otherwise full measures. Very poor prognosis overall.
Transfer out of IMU today.
Daughter updated on the phone, she now wants to move forward with hospice consult. Anticipate he will stay in the hospital under hospice care. I recommend changing his CODE STATUS to full DNR but daughter states that she is still waiting for her
brother to see her dad first.
Anticipated Discharge: 24 - 48 hours
Subjective/Interval History
-
Date of Service: July 21, 2023
Patient seen and examined. Not communicating with me. Tries to mumble but is incoherent.
Objective Data
-
Labs:
Laboratory Results
07/21/23
04:09
WBC 8.7
Hgb 8.3 L
Hct 29.8 L
Plt Count 108 L
Sodium 144
Potassium 4.5
Chloride 109 H
Carbon Dioxide 27
BUN 102 H*
Creatinine 2.5 H
Glucose 176 H
Calcium 8.2 L
Vital Signs:
Vital Signs
Temp Pulse Resp BP Pulse Ox
98.8 F 77 21 100/46 95
07/21/23 04:35 07/21/23 06:00 07/21/23 06:00 07/21/23 06:00 07/21/23 06:00
I&O
07/20/23 07/21/23 07/22/23
06:59 06:59 06:59
Intake Total 1340 / 1410 2295 / 2295
Output Total 610 / 610 200 / 200
Balance 730 / 800 2094 / 2094
Review of Systems
-
Unable to obtain full review of systems at this time due to: Acuity
--- NOTE | 2023-07-21 08:00 | PTCARENOTE ---
Assumed care of patient. Discussed plan of care w/ . Pt's level of care changed to M/S. Hospice consult ordered. Will transfer when bed available.
[2023-07-21] MEDS: LOW STRENGTH ASPIRIN TUBE (08:28)
[2023-07-21] MEDS: ProAmatine TUBE (08:28)
[2023-07-21] MEDS: HEPARIN SC (08:28)
[2023-07-21] MEDS: HYDROPHOR 1 APPLIC TOPICAL ×2 (08:55→23:07)
[2023-07-21] MEDS: DAKIN'S SOLUTION 0.125% 1/4 STRENGTH 473 ML TOPICAL (08:55)
[2023-07-21] MEDS: DESENEX/MITRAZOL/ZEASORB 1 APPLIC TOPICAL ×2 (08:55→23:07)
--- NOTE | 2023-07-21 11:30 | PTCARENOTE ---
Report called to 4th floor NATHALIE Felipe. Pt to transfer to Room 428.
--- NOTE | 2023-07-21 12:53 | CM ---
Addendum entered by Lacho Ma 07/21/23 15:52:
CM met with pt's daughter Glenny and she confirmed a plan to bring the pt back to [facility] with [facility] hospice and 12:00 p.m. sheepskin pickler time requested. Per daughter, she spoke to [facility] NATHALIE Hardy and she stated that
pt will be going to a separate room.
IMM reviewed, placed on chart, daughter has a copy.
[facility] is notified to arrange transportation with 12:00 pm sheepskin pickler time. PMNC completed, left with [facility].
[facility] mash tub cooker Sam and [facility] NATHALIE Hardy are aware of the above.
For nursing report: [facility]: [phone]; [facility]: [phone]
Discharge instructions fax: [facility]: [phone]; [facility]: [phone]
D/C plan: return back to [facility] with [facility] hospice tomorrow 07/22/23
Addendum entered by Lacho Ma 07/21/23 14:04:
CM met with pt and pt's son and pt's daughter in the room. Both pt's son and daughter feel that it might be difficult to manage pt at home. CM will follow up with pt's son and pt's daughter within an hour.
Addendum entered by Lacho Ma 07/21/23 13:25:
Per liaison planner Torrie, pt does not meet criteria for inpatient level of hospice and [facility] contracted with their preferred hospice company.
CM called [facility], spoke to NATHALIE Hardy and she is requested a referral be made to their preferred hospice care provider - [facility] hospice: phone: [phone]; fax: [phone].
CM spoke to [facility] hospice reprehneto Avalos and she stated that will be able to admit the pt on hospice care at [facility] tomorrow at 11:00 a.m. Requested pt's clinical with demographics faxed to [facility].
CM met with pt's daughter Diane and she is aware of the plan.
For nursing report: [facility]: [phone]; [facility]: [phone]
Discharge instructions fax: [facility]: [phone]; [facility]: [phone]
D/C plan: return back to [facility] with [facility] tomorrow 07/22/23. Requested discharge time: 11:00 a.m.
Original Note:
CM following re: discharge planning.
Reviewed pt's chart, met with pt. Pt downgraded to IMU level of care.
Hospice care consult noted. Pt is referred to hospice this morning, TTed liaison planner.
D/c plan: hospice care with hospice and 04/01 caregiver services. liaison planner following.
CM will follow with discharge plan updates as hospitalization progresses
--- NOTE | 2023-07-21 13:30 | PTCARENOTE ---
1330 Pt transferred from ICU via bed. Noted pt is drowsy but did awaken when stated pt's name. Dobhoff NGtube intact with jevity 1.5 at 60ml per hour via pump. Checked Dobhoff tube for correct placement. Pt will attempt to pull out tube, soft
restraints are on bilateral wrists. VS stable.
On O2 4 liters via n/c (pulse ox 94%). Chronic Hodge catheter in place. Reposition pt in bed with 2 staff assist. Noted orders,continue to monitor pt.
Pt's daughter at bedside.
--- NOTE | 2023-07-21 13:37 | HOSPNOTE ---
Referral received. After review of chart, patient is not GIP eligible. Spoke to case management. The plan then is to discharge back to [facility] tomorrow with hospice care. Reviewed the [facility] have their preferred hospice. CM is
working with [facility] hospice for discharge tomorrow. CM will update patients daughter as well.
[2023-07-21 21:28] LABS: Glucose - Point of Care 250 mg/dl (70-99)
[2023-07-21] MEDS: DAKIN'S SOLUTION 0.125% 1/4 STRENGTH 1 ML TOPICAL (23:07)
[2023-07-22 05:42] LABS: Glucose - Point of Care 132 mg/dl (70-99)
[2023-07-22 06:00] VITALS: BMI 29.8
--- NOTE | 2023-07-22 06:48 | PTCARENOTE ---
pt removed Dobbhoff while in restraints.
pt oral temp=96.1- warm blankets applied rechecked later 95.6. - informed [employer] Bg. later rec'd orders for yamil tim- obtained later obtained and applied
[2023-07-22] MEDS: DAKIN'S SOLUTION 0.125% 1/4 STRENGTH 1 ML TOPICAL (07:25)
--- NOTE | 2023-07-22 07:25 | PTCARENOTE ---
wound care completed this am
[2023-07-22 08:00] VITALS: BP 127/57
--- NOTE | 2023-07-22 08:52 | W.PN.HOSP.TC ---
Today's Communication/Plan
-
Discharge
Assessment / Plan
Assessment / Plan
Gen-lethargic, NAD
HEENT-NC, AT, anicteric, clear oral mm
Neck-supple
CV-reg, no M, +S1/S2
Lungs-clear B/L
Abd-soft, NT, ND
Ext-no edema
Musculoskeletal-no cyanosis, clubbing
Skin-warm and dry
Neuro-grossly non-focal
Psych-calm, cooperative
Acute TME (POA) - suspect due to critical illness, sepsis, etc. still looks lethargic today.
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 Creatinine rising, 2.5. Renal ultrasound negative for hydro.
Acute on chronic hypoxic respiratory failure -initial working diagnosis was pneumonia but at this point in time I am not convinced he has pneumonia. White blood cell count has remained normal. Cultures are unrevealing. He is not coughing. Oxygen
requirements are at baseline 4 L nasal cannula. July 17 chest x-ray with bibasilar opacification, unclear if atelectasis and/or pneumonia as well as possible bilateral pleural effusions.
- on continous BiPAP initially, now 4L which is baseline
- continue use BiPAP prn and at night
Chronic hypercapnic respiratory failure- continue use BiPAP prn and at night
Septic shock (hypothermia, tachypnea, hypotension) -unclear etiology of septic shock. 1 out of 2 blood cultures with coagulase negative staph, contamination. Sputum culture with usual respiratory yudelka. MRSA screen negative. White blood cell
counts normal. At this point we do not have a clear diagnosis of infection. Hold further antibiotics and observe.
- only briefly needed pressors. Midodrine started.
- continue sepsis protocol IVF
-Still using Jayne hugger for hypothermia.
Acute dysphagia -due to acute TME, due to acute illness. Dobbhoff tube in place, getting tube feeds.
Hypernatremia -due to dehydration. Sodium improving with hypotonic fluids.
Junctional bradycardia - secondary to hypothermia and sepsis
- TSH 15, FT4 normal
- monitor Tele
- DC stress dose steroids
Subclinical hypothyroidism -Free T4 normal, TSH 15. Continue low-dose Synthroid.
Chronic stage 4 sacral decub (POA) - continue local wound care.
Chronic urinary retention./chronic Hodge on admit
- continue Flomax
- Hodge replaced in ER
Small to moderate right pleural effusion/small left pleural effusion
CAD status post stent
- continue aspirin
- continue statin
Chronic HFpEF -furosemide on hold due to DIGNA. Very difficult assessing his volume status.
Essential hypertension - hold hydralazine given hypotension.
Hyperlipidemia - statin
DM2 without hyperglycemia -appears to only be on sliding scale insulin at home. Glucose is controlled. Suspect hemoglobin A1c (5.6%) to be unreliable in the setting of chronic anemia.
Chronic anemia -normocytic. Likely multifactorial etiology. Monitor hemoglobin.
Acute thrombocytopenia (POA) -unclear etiology. Counts are stable.
Cervical dystonia/ambulatory dysfunction -has not walked independently for about a year according to family. This portends a poor prognosis overall.
Obesity due to excess calories
History of constipation/stercoral colitis
- continue bowel regimen
DVT ppx: SC Heparin
DNR -discussed with daughter. She now agrees.
Dispo -plan to discharge today to assisted living facility on hospice care. Medically stable for discharge.
35 minutes spent in discharge process.
Anticipated Discharge: Today
Subjective/Interval History
-
Date of Service: July 22, 2023
Patient seen and examined. Not verbalizing for me. Looks comfortable. Lethargic.
Objective Data
-
Vital Signs:
Vital Signs
Temp Pulse Resp BP Pulse Ox
96.4 F L 60 18 127/57 96
07/22/23 08:00 07/22/23 08:00 07/22/23 08:00 07/22/23 08:00 07/22/23 08:00
I&O
07/21/23 07/22/23 07/23/23
06:59 06:59 06:59
Intake Total 2295 / 2380 425 / 425
Output Total 200 / 200 350 / 350
Balance 2094 / 2179 75 / 75
Review of Systems
-
Unable to obtain full review of systems at this time due to: Acuity
--- NOTE | 2023-07-22 08:57 | W.DS.TRANS ---
DC Summary - Box Packer
-
Discharge Instructions:
Discharge Diagnosis/Procedures Acute on chronic respiratory failure, acute
kidney injury, chronic kidney disease, septic
shock, dysphagia, hypothermia
Diet Other diet
Additional Diets Diet per hospice
Activity As tolerated
Driving Restrictions No driving
Bathing Restrictions None
Other Services Hospice
Instructions:
Stand-Alone Forms:
Changes to Home Medications: Yes
Discharge Medications:
Home Medication Changes
Stop your home medications
Pending Results: No
[2023-07-22] MEDS: HYDROPHOR 1 APPLIC TOPICAL (09:00)
[2023-07-22] MEDS: DESENEX/MITRAZOL/ZEASORB 1 APPLIC TOPICAL (09:00)
--- NOTE | 2023-07-22 10:27 | CM ---
TC to Patients daughter Diane.
Diane updated re transport time 12 pm.
Dobhoff discontinued.
Hospice already touched base with family.
Hospice order faxed to Robbie at [facility].
Plan: Back to [facility] today to sign onto hospice services.
[facility]
Report # [phone]

[facility] hosp[facility]
== END 2023-07-22 12:34 | disposition hospice, home (50) | DRG 871 ==
LOC: 4 WEST ACU 23:37
PROVIDERS: Internal Medicine; Nurse Practitioner Primary Care; ADMITTING PHYSICIAN Hospitalist; ATTENDING PHYSICIAN Hospitalist; CONSULT PHYSICIAN Internal Medicine; EMERGENCY PHYSICIAN Emergency Medicine; FAMILY PHYSICIAN Family Medicine; OTHER PHYSICIAN Internal Medicine Pulmonary Disease
DX: A41.9 Sepsis, unspecified organism (principal); G92.8 Other toxic encephalopathy; L89.154 Pressure ulcer of sacral region, stage 4; J18.9 Pneumonia, unspecified organism; R65.21 Severe sepsis with septic shock; J96.22 Acute and chronic respiratory failure with hypercapnia; J96.21 Acute and chronic respiratory failure with hypoxia; I50.32 Chronic diastolic (congestive) heart failure; I13.0 Hypertensive heart and chronic kidney disease with heart failure and stage 1 through stage 4 chronic kidney disease, or unspecified chronic kidney disease; I25.10 Atherosclerotic heart disease of native coronary artery without angina pectoris; Z95.5 Presence of coronary angioplasty implant and graft; N18.32 Chronic kidney disease, stage 3b; E11.22 Type 2 diabetes mellitus with diabetic chronic kidney disease; D63.8 Anemia in other chronic diseases classified elsewhere; E66.01 Morbid (severe) obesity due to excess calories; Z68.29 Body mass index [BMI] 29.0-29.9, adult; Z79.82 Long term (current) use of aspirin; I48.91 Unspecified atrial fibrillation; E78.00 Pure hypercholesterolemia, unspecified; Z11.52 Encounter for screening for COVID-19
CPT/HCPCS: 51798; 71045; 74018; 76770; 80048; 80053; 80202; 81003; 81015; 82533; 82607; 82728; 82746; 82805; 82962; 83036; 83540; 83550; 83605; 83880; 84439; 84443; 84484; 85025; 85610; 85730; 87040; 87070; 87086; 87150; 87205; 87502; 87811; 92526; 92610; 93005; 94660; 96361; 96365; 96366; 96367; 96375; 99291